=== PATIENT | male | born 1960 | race Two or more races ===

== ENCOUNTER 2019-09-17 13:35 | Inpatient (IN) | payer MEDICAID, OTHER ==
[~2019-09-17] VITALS: Ht 175.3 cm; Wt 98.6 kg
[2019-09-17] MEDS ORDERED: methylPREDNISolone SOD SUCC 125 MG/2 ML VL IV ONE (14:45)
[2019-09-17 17:17] LABS: Alanine Aminotransferase 40 U/L (16-61); Albumin 3.3 g/dL (3.4-5.0); Anion Gap 5 (5-15); Blood Urea Nitrogen 5 mg/dL (7-18); Calcium 8.8 mg/dL (8.5-10.1); Carbon Dioxide 27 mmol/L (21-32); Chloride 106 mmol/L (98-107); Glucose 103 mg/dL (74-106); Potassium 3.9 mmol/L (3.5-5.1); Sodium 138 mmol/L (136-145)
[2019-09-17 17:22] LABS: Alkaline Phosphatase 100 U/L (45-117); Aspartate Aminotransferase 30 U/L (15-37); BUN/Creatinine Ratio 7.9; Bilirubin, Total 0.5 mg/dL (0.2-1.0); GFR African American 167 mL/min; GFR Non-African American 138 mL/min; Total Protein 7.6 g/dL (6.4-8.2)
[2019-09-17 19:10] LABS: Basophils # (auto) 0 10 ^3/uL (0-0.2); Basophils % (auto) 0.2 % (0.0-2.0); Eosinophils # (auto) 0.1 10 ^3/uL (0-0.8); Eosinophils % (auto) 1.1 % (0.0-7.0); Hematocrit 39.8 % (41.0-53.0); Hemoglobin 13.4 g/dL (13.5-17.5); Lymphocytes % (auto) 10.6 % (10.0-50.0); Mean Corpuscular Hemoglobin 30.2 pg (28.0-32.0); Mean Corpuscular Hgb Conc. 33.6 g/dL (32.0-36.0); Mean Corpuscular Volume 89.9 fL (80.0-100.0); Monocytes # (auto) 0.6 10 ^3/uL (0-1.3); Monocytes % (auto) 6.4 % (0.0-12.0); Neutrophils # (auto) 7.4 10 ^3/uL (1.6-8.6); Neutrophils % (auto) 81.7 % (37.0-80.0); Nucleated Red Blood Cells % 0.1 %; Platelet Count (auto) 224 10^3/uL (140-450); Red Blood Cells 4.43 10^6/uL (4.5-5.90); Red Cell Distribution Width 14.8 % (11.8-14.3); White Blood Cell 9.1 10^3/uL (4.4-10.8)
[2019-09-17] MEDS ORDERED: HYDROmorphone HCL 2 MG/ML VL IV PRN (20:45)
[2019-09-17] MEDS ORDERED: ACETAMINOPHEN 325 MG TAB PO PRN (20:45)
[2019-09-17] MEDS ORDERED: DEXTROSE (50%) 50ML SYRG IV PRN (20:45)
[2019-09-17] MEDS ORDERED: MORPHINE SULF INJ 2 MG/ML SYRINGE 1ML IV PRN ×2 (20:45)
[2019-09-17] MEDS ORDERED: NITROGLYCERIN 0.4 MG SL TAB SL PRN (20:45)
[2019-09-17] MEDS ORDERED: levoFLOXacin 750MG 150 ML IV ONE (20:45)
[2019-09-17] MEDS ORDERED: ONDANSETRON HCL 4 MG/2 ML VIAL IV PRN (20:45)
[2019-09-17] MEDS ORDERED: HYDROcodone-ACET 5/325MG TAB PO PRN (20:45)
[2019-09-17] MEDS ORDERED: ALBUTEROL SULF HFA 90MCG INH 200DOSE IN SCH (22:00)
[2019-09-17 22:50] VITALS: BP 118/73
[2019-09-17] MEDS: ENOXAPARIN SOD 40 MG/0.4 ML SYRINGE SC SCH (22:50)
[2019-09-17] MEDS: SODIUM CHLOR 0.9% PF (SALINE LOCK) 10ML VIAL/SYR IV SCH (22:50)
[2019-09-17] MEDS: methylPREDNISolone SOD SUCC 40 MG/ML VL IV SCH (22:50)
[2019-09-17] MEDS: ACCU-CHEK COMFORT CURVE STRIP VI SCH (22:50)
--- NOTE | 2019-09-17 22:50 | NUR ---
Telemetry admit from ER KESHAV BHATTI admitted to Telemetry unit. Patient oriented to primary RN, unit, room, bed, and unit policies regarding patient care and visiting hours. Patient now on continuous telemetry monitoring, tele box #13 and telemetry reading on arrival to unit is NSR. Patient placed on bedside oxygen 2L NC, weighed by bedscale and encouraged to call if they need something. All questions and concerns addressed, patient verbalized understanding. Bed in lowest locked position, call light within reach, side rails up x2. Will continue to monitor Q1hr and PRN.
[2019-09-17] MEDS: InsuLIN REG 1unit/0.01ml Soln (100units/ml) SC SCH (22:55)
[2019-09-18 00:01] LABS: CRP High Sensitivity 2.69 mg/dL (< 0.3)
[2019-09-18 00:04] VITALS: BP 122/75
--- NOTE | 2019-09-18 03:20 | NUR ---
Received pt from [facility]. Report given by CARLOS ENRIQUE Contreras
--- NOTE | 2019-09-18 03:20 | NUR ---
Endorsed care Endorsed patient care to Nuno MONACO. Patient transferred to room 279A by Nuno MONACO via wheelchair. All personal belongings taken with patient.
[2019-09-18] MEDS: SODIUM CHLOR 0.9% PF (SALINE LOCK) 10ML VIAL/SYR IV SCH ×3 (06:37→22:00)
[2019-09-18] MEDS: InsuLIN REG 1unit/0.01ml Soln (100units/ml) SC SCH ×5 (06:38→23:13)
[2019-09-18] MEDS: ACCU-CHEK COMFORT CURVE STRIP VI SCH ×4 (06:38→22:48)
--- NOTE | 2019-09-18 07:30 | NUR ---
Opening Shift Note Assumed patient care from JOSE E MONACO.
[2019-09-18 08:35] LABS: Basophils # (auto) 0.1 10 ^3/uL (0-0.2); Basophils % (auto) 0.4 % (0.0-2.0); Eosinophils # (auto) 0 10 ^3/uL (0-0.8); Eosinophils % (auto) 0.3 % (0.0-7.0); Hemoglobin 13.3 g/dL (13.5-17.5); Lymphocytes # (auto) 0.7 10 ^3/uL (0.4-5.4); Lymphocytes % (auto) 6.2 % (10.0-50.0); Mean Corpuscular Hgb Conc. 33.2 g/dL (32.0-36.0); Mean Corpuscular Volume 90.2 fL (80.0-100.0); Monocytes # (auto) 0.3 10 ^3/uL (0-1.3); Monocytes % (auto) 2.2 % (0.0-12.0); Neutrophils # (auto) 10.9 10 ^3/uL (1.6-8.6); Neutrophils % (auto) 90.9 % (37.0-80.0); Platelet Count (auto) 227 10^3/uL (140-450); Red Blood Cells 4.43 10^6/uL (4.5-5.90); Red Cell Distribution Width 14.7 % (11.8-14.3)
[2019-09-18 08:57] LABS: Albumin 3.1 g/dL (3.4-5.0); BUN/Creatinine Ratio 9.5; Calcium 8.6 mg/dL (8.5-10.1); Magnesium 2.4 mg/dL (1.6-2.6); Potassium 3.9 mmol/L (3.5-5.1)
[2019-09-18 09:09] LABS: Bilirubin, Total 0.5 mg/dL (0.2-1.0); Total Protein 7.2 g/dL (6.4-8.2)
[2019-09-18 09:19] VITALS: BP 112/70
[2019-09-18] MEDS: ENOXAPARIN SOD 40 MG/0.4 ML SYRINGE SC SCH ×2 (09:37→22:48)
[2019-09-18] MEDS: methylPREDNISolone SOD SUCC 40 MG/ML VL IV SCH ×2 (09:37→22:47)
--- NOTE | 2019-09-18 10:00 | NUR ---
Ambulated Patient ambulated arounds station x4.
[2019-09-18 11:30] LABS: Urine WBC None Seen /hpf (0 - 3)
[2019-09-18 11:40] LABS: Urine Bacteria NONE SEEN /hpf (None Seen); Urine Blood Negative /uL (Negative); Urine Mucus FEW (None Seen); Urine Specific Gravity 1.018 (1.001-1.035)
--- NOTE | 2019-09-18 11:56 | NUR ---
at Bedside Dr. Angel at bedside discussing plan of care with patient. Per MD, call Dr. Rodas to obtain clearance for discharge.
[2019-09-18] MEDS ORDERED: FUROSEMIDE 40 MG/4 ML VIAL IV ONE (12:15)
[2019-09-18 13:00] VITALS: BP 131/72
--- NOTE | 2019-09-18 13:12 | NUR ---
Called MD Left message with Dr. Rodas regarding MD request for discharge clearance.
[2019-09-18 16:52] VITALS: BP 126/76
--- NOTE | 2019-09-18 19:40 | NUR ---
Opening Shift Note Patient awake and AOx4 w/ HOB at 30 degrees, locked in lowest position and call light within reach. Discussed POC w/ patient and patient understood w/ verbal agreement. No pain noted at this time. Will continue to monitor.
[2019-09-18 22:38] VITALS: BP 115/69
[2019-09-18] MEDS: levoFLOXacin 250 MG TAB PO SCH (22:46)
[2019-09-19 05:54] VITALS: BP 106/57
[2019-09-19] MEDS: SODIUM CHLOR 0.9% PF (SALINE LOCK) 10ML VIAL/SYR IV SCH ×2 (06:00→14:00)
[2019-09-19] MEDS: ACCU-CHEK COMFORT CURVE STRIP VI SCH ×2 (06:07→11:37)
[2019-09-19] MEDS: InsuLIN REG 1unit/0.01ml Soln (100units/ml) SC SCH ×2 (06:10→11:42)
[2019-09-19 06:42] LABS: Potassium 4.1 mmol/L (3.5-5.1)
[2019-09-19 06:46] LABS: BUN/Creatinine Ratio 14.5; Calcium 8.8 mg/dL (8.5-10.1)
--- NOTE | 2019-09-19 07:30 | NUR ---
Opening Shift Note Assumed patient care from NOC RN. Patient currently sitting up in bed, feet dangling. No signs of distress. Patient denying shortness of breath at this time, respirations are even and unlabored, 2L nasal cannula. Safety precautions in place, will continue to monitor.
--- NOTE | 2019-09-19 08:00 | NUR ---
Ambulated Patient ambulated around station x4. No signs of distress, patient denies shortness of breath at this time.
--- NOTE | 2019-09-19 09:30 | NUR ---
at Bedside Dr. Young at bedside discussing plan of care with patient. MD updated on patient status, per MD patient is clear for discharge, patient to obtain referral if follow up is needed.
[2019-09-19] MEDS: methylPREDNISolone SOD SUCC 40 MG/ML VL IV SCH (09:50)
[2019-09-19] MEDS: ENOXAPARIN SOD 40 MG/0.4 ML SYRINGE SC SCH (09:51)
[2019-09-19] MEDS: levoFLOXacin 250 MG TAB PO SCH (09:51)
[2019-09-19] MEDS ORDERED: FUROSEMIDE 40 MG/4 ML VIAL IV SCH (10:00)
--- NOTE | 2019-09-19 11:19 | NUR ---
at bedside Dr. Angel at bedside discussing plan of care with patient, per MD, patient will be discharged today.
[2019-09-19 12:30] VITALS: BP 120/70
[2019-09-19 14:50] VITALS: BP 120/70
--- NOTE | 2019-09-19 14:59 | NUR ---
assessment Hospital Sales Representative spoke with pt per ss consult for home health. Pt is a 59 yr old male admitted for acute respiratory failure. Pt is on 2 L o2 at home, he was with [facility] for vitals following 3 week admission at [facility] for covfl. Pt was independent with adl's prior to admission. only 02 for dme. pt resides with his spouse and children who are supportive. Pt will dc home with family, no home health needs. Ss to remain available as needed. Addendum: 09/19/19 at 1502 by PHILIP MILLER Amended: Links added.
--- NOTE | 2019-09-19 17:21 | NUR ---
Discharge Discharge instructions given as ordered. Encourage to follow up with PMD as instructed. All questions and concerns addressed. Patient verbalized understanding. Medication reconciliation form completed and copy given to patient. Patient received prescribed medications, delivered to bedside by [facility]. IV removed with catheter intact, pressure dressing applied. Telemetry unit returned to ICU. Patient taken to vehicle via wheelchair with all personal belongings, accompanied by staff. No distress noted at time of departure.
== END 2019-09-19 17:21 | disposition home or self-care (01) | DRG 137 ==
LOC: ER 13:35 → TELE 13:36 → TELE-EAST 22:42 → TELE-WESTW 09-18 03:24
PROVIDERS: ADMIT Internal Medicine; ATTEND Internal Medicine
DX: A48.1 Legionnaires' disease (principal); E11.9 Type 2 diabetes mellitus without complications; E66.9 Obesity, unspecified; J96.01 Acute respiratory failure with hypoxia; J18.9 Pneumonia, unspecified organism; J98.11 Atelectasis; B96.0 Mycoplasma pneumoniae [M. pneumoniae] as the cause of diseases classified elsewhere; Z20.828 Contact with and (suspected) exposure to other viral communicable diseases; Z68.32 Body mass index [BMI] 32.0-32.9, adult
CPT/HCPCS: 36415; 71045; 71046; 80048; 80053; 81001; 82728; 82962; 83036; 83605; 83615; 83735; 83880; 84439; 84443; 84484; 85025; 85379; 85652; 86141; 86738; 87040; 87278; G0378; J1815; J1956

== ENCOUNTER → 2019-10-29 | Outpatient (CLI) | payer MEDICAID ==
[2019-10-29 11:25] LABS: Cholesterol 186 mg/dL (< 200); HDL Cholesterol 48 mg/dL (40-59); LDL Cholesterol 126 mg/dL (< 100); Triglycerides 182 mg/dL (< 150)
== END | disposition home or self-care (01) ==
LOC: LAB 10:03
PROVIDERS: ATTEND Internal Medicine
DX: Z12.5 Encounter for screening for malignant neoplasm of prostate (principal); E11.9 Type 2 diabetes mellitus without complications; M79.89 Other specified soft tissue disorders
CPT/HCPCS: 36415; 80061; 82043; 83036; 84153; 84443; 85379

== ENCOUNTER → 2020-10-18 | Outpatient (CLI) | payer MEDICAID | END | disposition home or self-care (01) | LOC: Rad HDHVI 12:34 | PROVIDERS: ATTEND Internal Medicine Cardiovascular Disease | DX: E78.5 Hyperlipidemia, unspecified (principal); R06.02 Shortness of breath | CPT/HCPCS: 93306 ==

== ENCOUNTER → 2020-10-26 | Outpatient (CLI) | payer MEDICAID ==
[~2020-10-26] VITALS: Ht 175.3 cm; Wt 106.6 kg
[~2020-10-26] MED LIST: ADENOSINE 90 MG in GIVE UN-DILUTED 0 ML IV ONE; ADENOSINE 90 MG/30 ML INJ IV ONE
== END | disposition home or self-care (01) ==
LOC: Rad HDHVI 09:26
PROVIDERS: ATTEND Internal Medicine Cardiovascular Disease
DX: I10 Essential (primary) hypertension (principal); E11.9 Type 2 diabetes mellitus without complications; E78.5 Hyperlipidemia, unspecified; R06.02 Shortness of breath
CPT/HCPCS: 78452; 93005; 96374; 96375; A9500; J0153

== ENCOUNTER → 2021-02-24 | Outpatient (CLI) | payer MEDICAID ==
[2021-02-24 07:35] LABS: Cholesterol 197 mg/dL (< 200); HDL Cholesterol 53 mg/dL (40-59); LDL Cholesterol 118 mg/dL (< 100); Triglycerides 151 mg/dL (< 150)
== END | disposition home or self-care (01) ==
LOC: LAB 06:33
PROVIDERS: ATTEND Internal Medicine
DX: E11.9 Type 2 diabetes mellitus without complications (principal)
CPT/HCPCS: 36415; 80061; 82043; 83036

== ENCOUNTER → 2021-04-26 | Outpatient (CLI) | payer MEDICAID | END | disposition home or self-care (01) | LOC: LAB 08:50 | PROVIDERS: ATTEND Internal Medicine | DX: R05.9 Cough, unspecified (principal) | CPT/HCPCS: 36415; 85379 ==

== ENCOUNTER → 2022-04-10 | Outpatient (CLI) | payer MEDICAID | END | disposition home or self-care (01) | LOC: XYW 09:47 → EDSTATUS 16:17 | PROVIDERS: ATTEND Internal Medicine | DX: R00.2 Palpitations (principal) | CPT/HCPCS: 93306 ==

== ENCOUNTER → 2022-05-05 | Outpatient (CLI) | payer MEDICAID ==
[2022-05-05 11:08] LABS: Basophils # (auto) 0 10 ^3/uL (0-0.2); Basophils % (auto) 0.3 % (0.0-2.0); Eosinophils # (auto) 0.1 10 ^3/uL (0-0.8); Eosinophils % (auto) 1.8 % (0.0-7.0); Hematocrit 43.2 % (41.0-53.0); Hemoglobin 14.9 g/dL (13.5-17.5); Lymphocytes # (auto) 2.4 10 ^3/uL (0.4-5.4); Lymphocytes % (auto) 36.6 % (10.0-50.0); Mean Corpuscular Hemoglobin 30.8 pg (28.0-32.0); Mean Corpuscular Hgb Conc. 34.6 g/dL (32.0-36.0); Mean Corpuscular Volume 89.1 fL (80.0-100.0); Monocytes # (auto) 0.7 10 ^3/uL (0-1.3); Monocytes % (auto) 10.4 % (0.0-12.0); Neutrophils # (auto) 3.4 10 ^3/uL (1.6-8.6); Neutrophils % (auto) 50.9 % (37.0-80.0); Nucleated Red Blood Cells % 0.1 %; Red Blood Cells 4.84 10^6/uL (4.5-5.90); Red Cell Distribution Width 14.1 % (11.8-14.3); White Blood Cell 6.6 10^3/uL (4.4-10.8)
[2022-05-05 11:49] LABS: Albumin 3.7 g/dL (3.4-5.0); BUN/Creatinine Ratio 12.2; Bilirubin, Total 0.6 mg/dL (0.2-1.0); Calcium 8.7 mg/dL (8.5-10.1); Potassium 3.9 mmol/L (3.5-5.1); Total Protein 7.8 g/dL (6.4-8.2)
== END | disposition home or self-care (01) ==
LOC: LAB 10:32
PROVIDERS: ATTEND Internal Medicine
DX: Z00.00 Encounter for general adult medical examination without abnormal findings (principal); Z12.11 Encounter for screening for malignant neoplasm of colon; E11.9 Type 2 diabetes mellitus without complications; E78.5 Hyperlipidemia, unspecified
CPT/HCPCS: 36415; 80053; 80061; 82043; 83036; 85025

== ENCOUNTER → 2022-05-29 | Outpatient (CLI) | payer MEDICAID ==
[2022-05-29 12:57] LABS: Albumin 3.7 g/dL (3.4-5.0); Bilirubin, Direct 0.3 mg/dL (0-0.2); Bilirubin, Total 0.9 mg/dL (0.2-1.0); Total Protein 7.9 g/dL (6.4-8.2)
== END | disposition home or self-care (01) ==
LOC: LAB 10:34
PROVIDERS: ATTEND Internal Medicine
DX: E78.5 Hyperlipidemia, unspecified (principal)
CPT/HCPCS: 36415; 80076

== ENCOUNTER → 2022-06-16 | Outpatient (CLI) | payer MEDICAID ==
[2022-06-16 07:14] LABS: Albumin 3.4 g/dL (3.4-5.0); Calcium 8.5 mg/dL (8.5-10.1); Potassium 3.9 mmol/L (3.5-5.1)
[2022-06-16 07:18] LABS: BUN/Creatinine Ratio 10.5 (10.0-20.0); Bilirubin, Total 0.6 mg/dL (0.2-1.0); Total Protein 7.6 g/dL (6.4-8.2)
== END | disposition home or self-care (01) ==
LOC: LAB 06:27
PROVIDERS: ATTEND Internal Medicine
DX: E11.9 Type 2 diabetes mellitus without complications (principal); E78.5 Hyperlipidemia, unspecified
CPT/HCPCS: 36415; 80053; 80061; 83036

== ENCOUNTER 2022-10-04 10:10 | Emergency (ER) | payer MEDICAID ==
[~2022-10-04] VITALS: Ht 175.3 cm; Wt 104.6 kg
[2022-10-04] MEDS ORDERED: KETOROLAC TROMETH 60MG/2ML VIAL IM ONE (10:45)
[2022-10-04 11:36] LABS: Basophils # (auto) 0 10 ^3/uL (0-0.2); Basophils % (auto) 0.1 % (0.0-2.0); Eosinophils # (auto) 0.2 10 ^3/uL (0-0.8); Eosinophils % (auto) 2.4 % (0.0-7.0); Hematocrit 44.4 % (41.0-53.0); Hemoglobin 14.9 g/dL (13.5-17.5); Lymphocytes # (auto) 2.4 10 ^3/uL (0.4-5.4); Lymphocytes % (auto) 34.1 % (10.0-50.0); Mean Corpuscular Hemoglobin 29.8 pg (28.0-32.0); Mean Corpuscular Hgb Conc. 33.5 g/dL (32.0-36.0); Mean Corpuscular Volume 89.1 fL (80.0-100.0); Monocytes # (auto) 0.8 10 ^3/uL (0-1.3); Neutrophils # (auto) 3.6 10 ^3/uL (1.6-8.6); Neutrophils % (auto) 52.4 % (37.0-80.0); Nucleated Red Blood Cells % 0.2 %; Red Blood Cells 4.99 10^6/uL (4.5-5.90); Red Cell Distribution Width 14.2 % (11.8-14.3); White Blood Cell 6.9 10^3/uL (4.4-10.8)
[2022-10-04 11:37] LABS: Urine Bacteria NONE SEEN /hpf (None Seen); Urine Blood Negative /uL (Negative); Urine Specific Gravity 1.035 (1.001-1.035); Urine WBC <1 /hpf (0 - 3)
[2022-10-04 11:48] LABS: Albumin 3.4 g/dL (3.4-5.0); Calcium 8.3 mg/dL (8.5-10.1); Potassium 3.8 mmol/L (3.5-5.1)
[2022-10-04 11:53] LABS: BUN/Creatinine Ratio 16.2 (10.0-20.0); Bilirubin, Total 0.4 mg/dL (0.2-1.0); Total Protein 7.4 g/dL (6.4-8.2)
[2022-10-04 12:18] VITALS: BP 101/59; PULSE 71; RESP 17; TEMP 98.7; O2SAT 95
== END 2022-10-04 12:20 | disposition home or self-care (01) ==
LOC: ER 10:10
DX: M79.18 Myalgia, other site (principal); E11.9 Type 2 diabetes mellitus without complications; E78.5 Hyperlipidemia, unspecified
CPT/HCPCS: 36415; 74176; 80053; 81001; 85025; 93005; 96372; 99285; J1885

== ENCOUNTER → 2022-10-30 | Outpatient (CLI) | payer MEDICAID ==
[2022-10-30 07:41] LABS: Albumin 3.4 g/dL (3.4-5.0); Bilirubin, Direct 0.2 mg/dL (0-0.2)
[2022-10-30 07:44] LABS: Bilirubin, Total 0.5 mg/dL (0.2-1.0); Total Protein 7.2 g/dL (6.4-8.2)
== END | disposition home or self-care (01) ==
LOC: LAB 06:15
PROVIDERS: ATTEND Internal Medicine
DX: E11.9 Type 2 diabetes mellitus without complications (principal); E78.5 Hyperlipidemia, unspecified
CPT/HCPCS: 36415; 80061; 80076; 83036

== ENCOUNTER → 2022-12-18 | Outpatient (CLI) | payer MEDICAID ==
[2022-12-18 07:18] LABS: Urine Bacteria NONE SEEN /hpf (None Seen); Urine Blood Negative /uL (Negative); Urine Clarity Clear (Clear); Urine Color Yellow (Yellow); Urine Protein, UAD Negative (Negative); Urine Urobilinogen Normal (Negative); Urine WBC 1 /hpf (0 - 3); Urine pH 5.5 (5.0-8.0)
[2022-12-18 08:08] LABS: Erythrocyte Sedimentation Rate 5 mm/hr (0-20)
[2022-12-18 08:15] LABS: Creatinine, Urine 128.59 mg/dL (30.0-125.0)
[2022-12-18 08:17] LABS: Micro Albumin < 3.0 mg/L (<30.0)
[2022-12-18 08:18] LABS: Alanine Aminotransferase 21 U/L (7-40); Albumin 3.9 g/dL (3.2-4.8); Alkaline Phosphatase 121 U/L (46-116); Anion Gap 9 (5-15); Aspartate Aminotransferase 17 U/L (13-40); BUN/Creatinine Ratio 9.6 (10.0-20.0); Bilirubin, Total 0.9 mg/dL (0.2-1.0); Blood Urea Nitrogen 7 mg/dL (9-23); CRP High Sensitivity 0.38 mg/dL (<1.0); Calcium 8.9 mg/dL (8.5-10.1); Carbon Dioxide 25 mmol/L (20-30); Chloride 107 mmol/L (98-107); Glucose 138 mg/dL (74-106); Potassium 3.9 mmol/L (3.5-5.1); Sodium 141 mmol/L (136-145); Total Protein 7.1 g/dL (5.7-8.2)
[2022-12-18 12:27] LABS: Uric Acid 4.4 mg/dL (3.7-9.2)
== END | disposition home or self-care (01) ==
LOC: LAB 06:25
PROVIDERS: ATTEND Internal Medicine
DX: E11.9 Type 2 diabetes mellitus without complications (principal); E78.5 Hyperlipidemia, unspecified; M54.50 Low back pain, unspecified
CPT/HCPCS: 36415; 80053; 81001; 82043; 82570; 84550; 85652; 86141

== ENCOUNTER 2022-12-26 13:00 | Emergency (ER) | payer MEDICAID ==
[~2022-12-26] VITALS: Ht 175.3 cm; Wt 104.0 kg
[2022-12-26 14:43] VITALS: BP 106/72; PULSE 78; RESP 18; TEMP 98.4; O2SAT 95
[2022-12-26] MEDS ORDERED: KETOROLAC TROMETH 60MG/2ML VIAL IM ONE (14:45)
[2022-12-26] MEDS ORDERED: TETANUS-DIPTH-ACEL PERTUSSIS 0.5ML SYR Tdap IM ONE (14:45)
[2022-12-26] MEDS ORDERED: ACE3T PO (16:33)
[2022-12-26] MEDS ORDERED: IBUP-1455 PO (16:33)
[2022-12-26] MEDS ORDERED: CEPH500C PO (16:33)
== END 2022-12-26 16:45 | disposition home or self-care (01) ==
LOC: ER 13:00
DX: M79.644 Pain in right finger(s) (principal); L08.9 Local infection of the skin and subcutaneous tissue, unspecified
CPT/HCPCS: 73130; 90471; 90715; 96372; 99284; J1885

== ENCOUNTER → 2023-01-25 | Outpatient (CLI) | payer MEDICAID ==
[~2023-01-25] MED LIST changes: +ACE3T PO; -ADENOSINE 90 MG in GIVE UN-DILUTED 0 ML IV ONE; -ADENOSINE 90 MG/30 ML INJ IV ONE; +CEPH500C PO; +IBUP-1455 PO
[2023-01-25 07:27] LABS: Triglycerides 161 mg/dL (< 150)
[2023-01-25 07:28] LABS: LDL Cholesterol 85 mg/dL (< 100)
[2023-01-25 07:29] LABS: Cholesterol 154 mg/dL (< 200); HDL Cholesterol 45 mg/dL (40-59)
== END | disposition home or self-care (01) ==
LOC: LAB 06:07
PROVIDERS: ATTEND Internal Medicine
DX: E11.9 Type 2 diabetes mellitus without complications (principal)
CPT/HCPCS: 36415; 80061; 83036

== ENCOUNTER 2023-02-06 14:41 | Emergency (ER) | payer MEDICAID ==
[~2023-02-06] VITALS: Ht 175.3 cm; Wt 107.0 kg
[2023-02-06 15:09] VITALS: BP 124/60; PULSE 67; RESP 18; O2SAT 94
[2023-02-06] MEDS ORDERED: AMOX875T4 PO (18:35)
== END 2023-02-06 18:54 | disposition home or self-care (01) ==
LOC: ER 14:43
DX: T18.9XXA Foreign body of alimentary tract, part unspecified, initial encounter (principal); E11.9 Type 2 diabetes mellitus without complications; E78.5 Hyperlipidemia, unspecified; W44.8XXA Other foreign body entering into or through a natural orifice, initial encounter; Y93.89 Activity, other specified; Y92.89 Other specified places as the place of occurrence of the external cause; Y99.8 Other external cause status

== ENCOUNTER → 2023-09-12 | Outpatient (CLI) | payer OTHER, MEDICAID ==
[~2023-09-12] MED LIST changes: +AMOX875T4 PO
[2023-09-12 06:42] LABS: Urine Bacteria None Seen /hpf (None Seen)
[2023-09-12 07:18] LABS: Urine Blood Negative /uL (Negative); Urine Clarity Clear (Clear); Urine Color Light-Yellow (Yellow); Urine Protein, UAD Negative (Negative); Urine Specific Gravity 1.026 (1.001-1.035); Urine Urobilinogen Normal (Negative); Urine WBC <1 /hpf (0 - 3)
[2023-09-12 07:28] LABS: CRP High Sensitivity 0.18 mg/dL (<1.0)
[2023-09-12 07:59] LABS: Erythrocyte Sedimentation Rate 3 mm/hr (0-20)
== END | disposition home or self-care (01) ==
LOC: LAB 06:30
PROVIDERS: ATTEND Internal Medicine
DX: Z12.5 Encounter for screening for malignant neoplasm of prostate (principal); E11.9 Type 2 diabetes mellitus without complications; E78.5 Hyperlipidemia, unspecified; R10.9 Unspecified abdominal pain; D35.02 Benign neoplasm of left adrenal gland; Z00.00 Encounter for general adult medical examination without abnormal findings
CPT/HCPCS: 36415; 80061; 81001; 82150; 83036; 83690; 84153; 84443; 85652; 86141

== ENCOUNTER → 2024-04-17 | Outpatient (CLI) | payer OTHER, MEDICAID ==
[2024-04-17 08:09] LABS: Basophils # (auto) 0 10 ^3/uL (0-0.2); Basophils % (auto) 0.4 % (0.0-2.0); Eosinophils # (auto) 0.1 10 ^3/uL (0-0.8); Eosinophils % (auto) 2.4 % (0.0-7.0); Hematocrit 47.9 % (41.0-53.0); Hemoglobin 16.2 g/dL (13.5-17.5); Lymphocytes # (auto) 1.8 10 ^3/uL (0.4-5.4); Lymphocytes % (auto) 32.8 % (10.0-50.0); Mean Corpuscular Hemoglobin 30.3 pg (28.0-32.0); Mean Corpuscular Hgb Conc. 33.7 g/dL (32.0-36.0); Mean Corpuscular Volume 89.8 fL (80.0-100.0); Monocytes # (auto) 0.6 10 ^3/uL (0-1.3); Monocytes % (auto) 11.6 % (0.0-12.0); Neutrophils # (auto) 2.9 10 ^3/uL (1.6-8.6); Neutrophils % (auto) 52.8 % (37.0-80.0); Nucleated Red Blood Cells % 0.1 %; Platelet Count (auto) 144 10^3/uL (140-450); Red Blood Cells 5.33 10^6/uL (4.5-5.90); Red Cell Distribution Width 13.7 % (11.8-14.3); White Blood Cell 5.4 10^3/uL (4.4-10.8)
[2024-04-17 08:27] LABS: Creatinine, Urine 154.91 mg/dL (30.0-125.0)
[2024-04-17 08:30] LABS: Microalb/Creat Ratio, Urine < 3.0
[2024-04-17 08:31] LABS: Micro Albumin < 3.0 mg/L (<30.0)
[2024-04-17 08:32] LABS: Alanine Aminotransferase 19 U/L (7-40); Anion Gap 9 (5-15); Calcium 9.6 mg/dL (8.7-10.4); Carbon Dioxide 27 mmol/L (20-31); Chloride 104 mmol/L (98-107); Potassium 4.1 mmol/L (3.5-5.1); Sodium 140 mmol/L (136-145)
[2024-04-17 08:34] LABS: BUN/Creatinine Ratio 9.4 (10.0-20.0)
[2024-04-17 08:36] LABS: Albumin 4.5 g/dL (3.2-4.8); Aspartate Aminotransferase 18 U/L (13-40); Bilirubin, Total 0.7 mg/dL (0.2-1.0); Total Protein 7.4 g/dL (5.7-8.2)
[2024-04-17 08:45] LABS: Alkaline Phosphatase 143 U/L (46-116); Blood Urea Nitrogen 8 mg/dL (9-23); Glucose 159 mg/dL (74-106)
== END | disposition home or self-care (01) ==
LOC: LAB 07:37
PROVIDERS: ATTEND Internal Medicine
DX: E11.9 Type 2 diabetes mellitus without complications (principal)
CPT/HCPCS: 36415; 80053; 82043; 82570; 83036; 85025

== ENCOUNTER 2024-06-25 07:40 | Emergency (ER) | payer OTHER, MEDICAID ==
[~2024-06-25] VITALS: Ht 175.3 cm; Wt 99.5 kg
[2024-06-25 08:14] VITALS: BP 133/79; PULSE 93; RESP 17; TEMP 98.1; O2SAT 95
[2024-06-25] MEDS: KETOROLAC TROMETH 30 MG/ML 1ML VIAL IM ONE (08:31)
[2024-06-25] MEDS: methylPREDNISolone SOD SUCC 125 MG/2 ML VL IM ONE (08:31)
[2024-06-25] MEDS: HYDROcodone-ACET 5/325MG TAB PO ONE (08:31)
--- NOTE | 2024-06-25 08:56 | ED.PDOC ---
Back pain HPI HPI Comments This is a pleasant 63-year-old male with no pertinent MHx that presents with a chief complaint of atraumatic left lower back pain x2 days that radiates down the posterior left lower extremity. Aggravating factors include prolonged ambulation walking and laying on the affected side and patient is able to get temporary relief with [id number] Tylenol Motrin. Denies fevers chills night sweats nausea vomiting unintentional weight loss Denies IV drug use history of HIV/TB Denies abdominal "tearing" pain Denies syncope Denies urinary incontinence or urinary changes Denies numbness tingling of the groin or inner thigh Denies previous back procedure or surgery Chief Complaint: Back Pain Time Seen by MD: 07:55 Primary Care Provider: AMPARO Reviewed Notes: Nurses Notes, Medications, Allergies Allergies: Coded Allergies: NO KNOWN ALLERGIES (Unverified , 09/17/19) Home Meds Active Scripts Amoxicillin & Pot Clavulanate (Amoxicillin/Potassium Cla) 875 Mg Tab, 1 TAB PO BID for 7 Days, #14 TAB 0 Refills Prov:MARTINA MARI 02/06/23 Acetaminophen W/ Codeine (Tylenol W/Cod #3) 1 Tab Tb, 1 TAB PO Q6HP PRN, #15 TAB Prov:CHARLY GALLEGOS PAC 12/26/22 Ibuprofen Micronized (Ibuprofen) 800 Mg Tab, 800 MG PO Q8HP PRN, #30 TAB Prov:CHARLY GALLEGOS PAC 12/26/22 Cephalexin Monohydrate (Cephalexin) 500 Mg Cap, 1 CAP PO QID for 7 Days, #28 CAP Prov:CHARLY GALLEGOS PAC 12/26/22 Information Source: Patient Mode of Arrival: Wheelchair Past Medical History PAST MEDICAL HISTORY: DM, High Lipids Surgical History: Denies all surgeries Family History Family History: Unknown Social History Smoker: Non-Smoker Alcohol: Occasionally Drugs: Denies Drug Use Lives In: Home All Other Systems: Reviewed and Negative (Per HPI) Physical Exam General Appearance: No Apparent Distress, Normal HEENT: Normal ENT Inspection, Pharynx Normal, TMs Normal Neck: Full Range of Motion, Non-Tender, Normal, Normal Inspection Respiratory: Chest Non-Tender, Lungs Clear, No Accessory Muscle Use, No Respiratory Distress, Normal Breath Sounds Cardiovascular: No Edema, No JVD, No Murmur, No Gallop, Normal Peripheral Pulses, Regular Rate/Rhythm Breast Exam: Deferred Gastrointestinal: No Organomegaly, Non Tender, No Pulsatile Mass, Normal Bowel Sounds, Soft Genitalia: Deferred Pelvic: Deferred Rectal: Deferred Extremities: No calf tenderness, Normal capillary refill, Normal inspection, Normal range of motion, Non-tender, No pedal edema Musculoskeletal : Location: Left Extremity Location: Back (No gross abnormality to the back on inspection. No midline tenderness. Full forward flexion-extension and lateral movements. Distal neuro sensation intact. Left straight leg raise test positive) Apperance: Normal Neurologic: Alert, customer experience strategist II-XII nml as Tested, No Motor Deficits, Normal Affect, Normal Mood, No Sensory Deficits Cerebellar Function: Normal Reflexes: Normal Skin: Dry, Normal Color, Warm Lymphatic: No Adenopathy Was a procedure done? Was a procedure done?: No Back Pain Differential Dx Differential Diagnosis: Musculoskeletal Pain X-Ray, Labs, Meds, VS Vital Signs Date Time Temp Pulse Resp B/P (MAP) Pulse Ox O2 Delivery O2 Flow Rate FiO2 06/25/24 08:14 98.1 93 17 133/79 (97) 95 98.1 06/25/24 08:14 93 17 95 Room Air 06/25/24 07:54 98.1 93 17 133/79 (97) 95 98.1 Current Medications Medications (Trade) Dose Ordered Sig/Sina Route Start Time Stop Time Status Last Admin Ketorolac Tromethamine (Toradol Injection) 30 mg ONCE ONCE IM 06/25/24 08:30 06/25/24 08:31 DC 06/25/24 08:31 Acetaminophen/ Hydrocodone Bitart ([place] 5/325MG Tab) 1 tab ONCE ONCE PO 06/25/24 08:30 06/25/24 08:31 DC 06/25/24 08:31 Methylprednisolone Sodium Succinate (Solu Medrol) 125 mg ONCE ONCE IM 06/25/24 08:30 06/25/24 08:31 DC 06/25/24 08:31 X-Ray, Labs, Meds, VS Comment Given patient's history and exam: Sciatica, cord compression, cauda equina, aortic dissection, Guillain-[place] syndrome, epidural hematoma/abscess were all considered. Patient not toxic or ill-appearing. Vital signs within acceptable limits. Positive straight leg raise on exam with tenderness to the buttock consistent with sciatica. No vertebral point tenderness noted over the T or L- spine. No paraspinal muscle tenderness noted. No fever or IV drug use the. The differential for an acute vascular, neurologic, malignant, or infectious etiologies is much less likely given his/her presentation. The patient does not warrant a radiological exam at this time. The patient was given Medication for pain control in the ED. Advised patient to try to take alternating Ibuprofen and Tylenol to help with inflammation of the sciatic nerve and surrounding tissues and should try to do low back stretches but also try to rest and avoid excessive sitting and bending. On reassessment, the patient's symptoms improved, and patient was able to ambulate without assistive devices. The patient will f/u with PMD to see if his/her symptoms soco. An MRI may need to be ordered if the symptoms worsen or do not improve over time. The patient was counseled in regard to the diagnosis and management of the condition and verbalized understanding of this. The patient understands to return to the ER or seek immediate medical attention if the symptoms worsen or return. Time of 1ST Reevaluation: 08:53 Reevaluation 1ST: Improved Patient Education/Counseling: Diagnosis, Treatment Family Education/Counseling: Diagnosis, Treatment Departure 1 Departure Time of Disposition: 08:54 Impression: Primary Impression: Lumbar radiculopathy Disposition: 01 HOME / SELF CARE / HOMELESS Condition: Stable Discharged With: Spouse Critical Care Note Critical Care Time?: No Stability Stability form required: No Heart Score Heart Score: Heart Score Response (Comments) Value History N/A 0 EKG N/A 0 Age N/A 0 Risk Factors N/A 0 Troponin N/A 0 Total 0 GONZALO GARCIA COMPRESSOR STATIONS SUPERINTENDENT Jun 25, 2024 08:56
== END 2024-06-25 09:00 | disposition home or self-care (01) ==
LOC: ER 07:40
DX: M54.16 Radiculopathy, lumbar region (principal); E11.9 Type 2 diabetes mellitus without complications; E78.5 Hyperlipidemia, unspecified; Z79.899 Other long term (current) drug therapy
CPT/HCPCS: 96372; 99284; J1885; J2919

== ENCOUNTER → 2024-07-14 | Outpatient (CLI) | payer OTHER, MEDICAID ==
[2024-07-14 07:45] LABS: Urine Bacteria None Seen /hpf (None Seen)
[2024-07-14 08:25] LABS: Urine Blood Negative /uL (Negative); Urine Clarity Clear (Clear); Urine Color Light-Yellow (Yellow); Urine Protein, UAD Negative (Negative); Urine Specific Gravity 1.041 (1.001-1.035); Urine Squamous Epithelial Cell FEW /hpf (<5); Urine Urobilinogen Normal (Negative); Urine WBC 2 /HPF (0-3); Urine pH 6.5 (5.0-9.0)
[2024-07-14 08:42] LABS: Alanine Aminotransferase 19 U/L (7-40); Albumin 4.4 g/dL (3.2-4.8); Anion Gap 9 (5-15); Aspartate Aminotransferase 15 U/L (13-40); BUN/Creatinine Ratio 16.5 (10.0-20.0); Bilirubin, Total 0.9 mg/dL (0.2-1.0); Blood Urea Nitrogen 13 mg/dL (9-23); Calcium 9.6 mg/dL (8.7-10.4); Carbon Dioxide 27 mmol/L (20-31); Chloride 107 mmol/L (98-107); Potassium 3.9 mmol/L (3.5-5.1); Sodium 143 mmol/L (136-145); Total Protein 7.4 g/dL (5.7-8.2)
[2024-07-14 08:43] LABS: Alkaline Phosphatase 136 U/L (46-116); Glucose 156 mg/dL (74-106)
== END | disposition home or self-care (01) ==
LOC: LAB 07:30
PROVIDERS: ATTEND Internal Medicine
DX: E11.9 Type 2 diabetes mellitus without complications (principal)
CPT/HCPCS: 36415; 80053; 81001; 83036

== ENCOUNTER 2024-09-24 10:29 | Emergency (ER) | payer OTHER, MEDICAID ==
[~2024-09-24] VITALS: Ht 175.3 cm; Wt 96.0 kg
[2024-09-24 10:46] VITALS: TEMP 98.8
[2024-09-24 10:58] VITALS: BP 121/79; PULSE 77; RESP 18; O2SAT 98
--- NOTE | 2024-09-24 10:59 | ED.PDOC ---
General HPI Comments 64 y/o M, with PMHx of DM and HLD presents to the ED for CC of penile pain. Patient states, he has been experiencing pain to the tip of his penis x20 days. Patient reports, that he is uncircumcised and when pulling back his foreskin the tip of his penis is sore, dry, and cracked. Patient relays, previous symptoms in the past [id number] ago and being prescribed Acyclovir; endorses not finishing Rx. Also tried clotrimazole w/ out improvement. Patient denies painful urination, fever, nausea, or penile discharge. No other symptoms or modifying factors present at this time. Chief Complaint: Penile Problem Time Seen by MD: 10:47 Primary Care Provider: AMPARO Reviewed notes: Nurses Notes, Medications, Allergies Allergies: Coded Allergies: NO KNOWN ALLERGIES (Unverified , 09/17/19) Home Meds Active Scripts Hydrocortisone Base (Hydrocortisone) 2.5 % Oin, 1 APPLIC TOP BID for 7 Days, #30 GRAMS 0 Refills Prov:GONZALO GARCIA REAL PROPERTY APPRAISER 09/24/24 Amoxicillin & Pot Clavulanate (Amoxicillin/Potassium Cla) 875 Mg Tab, 1 TAB PO BID for 7 Days, #14 TAB 0 Refills Prov:MARTINA MARI 02/06/23 Acetaminophen W/ Codeine (Tylenol W/Cod #3) 1 Tab Tb, 1 TAB PO Q6HP PRN, #15 TAB Prov:CHARLY GALLEGOS PAC 12/26/22 Ibuprofen Micronized (Ibuprofen) 800 Mg Tab, 800 MG PO Q8HP PRN, #30 TAB Prov:CHARLY GALLEGOS PAC 12/26/22 Cephalexin Monohydrate (Cephalexin) 500 Mg Cap, 1 CAP PO QID for 7 Days, #28 CAP Prov:CHARLY GALLEGOS PAC 12/26/22 Information Source: Patient Mode of Arrival: Ambulatory Severity: Moderate Inability to void: None Timing: Days Duration: Since onset Prehospital treatment: None Onset: Following sexual contact Symptoms: Other (penile pain) Location: None Penile discharge: None Modifying factors: None associated signs and symptoms: Other (penile pain) Past Medical History PAST MEDICAL HISTORY: DM, High Lipids Surgical History: Denies all surgeries Family History Family History: Unknown Social History Smoker: Non-Smoker Alcohol: Occasionally Drugs: Denies Drug Use Lives In: Home Constitutional: denies: chills, diaphoresis, fatigue, fever, malaise, sweats, weakness, others EENTM: denies: blurred vision, double vision, ear bleeding, ear discharge, ear drainage, ear pain, ear ringing, eye pain, eye redness, hearing loss, mouth pain, mouth swelling, nasal discharge, nose bleeding, nose congestion, nose pain, photophobia, tearing, throat pain, throat swelling, voice changes, others Respiratory: denies: cough, hemoptysis, orthopnea, SOB at rest, shortness of breath, SOB with excertion, stridor, wheezing, others Cardiovascular: denies: chest pain, dizzy spells, diaphoresis, Dyspnea on exertion, edema, irregular heart beat, left arm pain, lightheadedness, palpitations, PND, syncope, others Gastrointestinal: denies: abdomen distended, abdominal pain, blood streaked bowels, constipated, diarrhea, dysphagia, difficulty swallowing, hematemesis, melena, nausea, poor appetite, poor fluid intake, rectal bleeding, rectal pain, vomiting, others Genitourinary: reports: others (penile pain); denies: burning, dysuria, flank pain, frequency, hematuria, incontinence, penile discharge, penile sore, pain, testicle pain, testicle swelling, urgency Neurological: denies: dizziness, fainting, headache, left sided numbness, left sided weakness, numbness, paresthesia, pre-existing deficit, right sided numbnes s, right sided weakness, seizure, speech problems, tingling, tremors, weakness, others Musculoskeletal: denies: back pain, gout, joint pain, joint swelling, muscle pain, muscle stiffness, neck pain, others Integumetry: denies: bruises, change in color, change in hair/nails, dryness, laceration, lesions, lumps, rash, wounds, others Allergic/Immunocompromised: denies: Difficulty Healing, Frequent Infections, Hives, Itching, others Hematologic/Lymphatic: denies: anemia, blood clots, easy bleeding, easy bruising, swollen glands, others Endocrine: denies: excessive hunger, excessive sweating, excessive thirst, excessive urination, flushing, intolerance to cold, intolerance to heat, unexplained weight gain, unexplained weight loss, others Psychiatric: denies: anxiety, bipolar disorder, depression, hopeless, panic disorder, schizophrenia, sleepless, suicidal, others All Other Systems: Reviewed and Negative Physical Exam General Appearance: No Apparent Distress, Normal HEENT: Normal ENT Inspection, Pharynx Normal Neck: Full Range of Motion, Non-Tender, Normal, Normal Inspection Respiratory: Chest Non-Tender, Lungs Clear, No Accessory Muscle Use, No Respiratory Distress, Normal Breath Sounds Cardiovascular: No Murmur, No Gallop, Regular Rate/Rhythm Breast Exam: Deferred Gastrointestinal: No Organomegaly, Non Tender, No Pulsatile Mass, Normal Bowel Sounds, Soft Genitalia: Penis (shaft mildly erythematosus), Deferred Pelvic: Deferred Rectal: Deferred Extremities: No calf tenderness, Normal capillary refill, Normal inspection, Normal range of motion, Non-tender, No pedal edema Musculoskeletal : Apperance: Normal Neurologic: Alert, billing customer service representative II-XII nml as Tested, No Motor Deficits, Normal Affect, Normal Mood, No Sensory Deficits Cerebellar Function: Normal Reflexes: Normal Skin: Dry, Normal Color, Warm Lymphatic: No Adenopathy Was a procedure done? Was a procedure done?: No Differential Diagnosis Kidney stone (Female): N/A Kidney stone (Male): N/A Penile/Scrotal: Epidiymitis, Prostatitis, STD, Other (STI) Urinary Problem (Male): N/A Urinary Problem (Female): N/A X-Ray, Labs, Meds, VS Vital Signs Date Time Temp Pulse Resp B/P (MAP) Pulse Ox O2 Delivery O2 Flow Rate FiO2 09/24/24 10:58 77 18 98 Room Air 09/24/24 10:58 76 18 121/79 (93) 94 09/24/24 10:46 98.8 79 16 103/65 (78) 94 98.8 Lab Test 09/24/24 10:53 Range/Units Urine Color Light-yellow Yellow Urine Clarity Clear Clear Urine pH 6.0 5.0-9.0 Urine Specific [place] 1.043 H 1.001-1.035 Urine Protein Negative Negative Urine Ketones Negative Negative Urine Blood Negative Negative /uL Urine Nitrite Negative Negative Urine Bilirubin Negative Negative Urine Urobilinogen Normal Negative mg/dL Urine Leukocyte Esterase Negative Negative /uL Urine RBC 15 0 - 3 /hpf Urine Microscopic WBC 1 0-3 /HPF Urine Squamous Epithelial Cells Few <5 /hpf Urine Bacteria None seen None Seen /hpf Urine Hyaline Casts Few 0 - 2 /lpf Urine Mucus Few None Seen Urine Glucose 4+ H Normal mg/dL Chlamydia trachomatis (MELVIN) Pending Neisseria gonorrhoeae (MELVIN) Pending X-Ray, Labs, Meds, VS Comment 64 y/o M, with PMHx of DM and HLD presents to the ED for CC of penile pain. Patient arrives alert and oriented, ABC's intact, afebrile, vital signs stable, saturating well in room air Urinalysis was ordered to rule out UTI or hematuria. Medical Decision Making: DIFFERENTIAL DIAGNOSIS: Symptoms consistent with balanoposthitis. Physiologic phimosis noted on exam but no evidence of obstructive uropathy. Pain well controlled and patient well hydrated Recommended sitz baths twice daily with bacitracin ointment three times a day to shaft and glans. Stressed importance of pulling foreskin back to normal position afterwards. If no improvement over the next week, then follow up with primary doctor. Return precautions discussed such as those associated with obstructive uropathy. IMPRESSION: Balanoposthitis PLAN: Discharge home in stable condition with continued outpatient evaluation with Primary Care Provider in 1 week if no improvement. Patient is stable for discharge at this time. External notes reviewed. Test results and diagnostic imaging interpreted. All diagnostic findings, discharge care, education and instructions provided Follow-up with PCP in 2 to 3 days Patient verbalized understanding and agreed to treatment plan Vital signs stable, afebrile, no acute distress noted Patient ambulatory with strong steady gait Advised to return precautions for any new or worsening symptoms, return to ER immediately for re-evaluation Patient is aware that the purpose of this visit was for an acute medical wendy gency requiring emergent stabilization. Chronic conditions, including malignancies have not been ruled out. Patient is instructed to follow up with PCP as directed and discharge instructions for continued care and workup. If unable to arrange follow-up, patient is to return to the emergency department for reassessment. Patient (parent or legal guardian if applicable) was given v erbal and written discharge instructions and acknowledges understanding. Additional MDM Review of External, Non-ED records: External records reviewed. Discussion with independent historian (EMS, family) history obtained from the patient/parents (if applicable) at bedside Chronic conditions affecting care: None Social determinants of health affecting care: None Consideration of admission (observation or admission): I considered escalation of care to admission for this patient, however given the reassuring workup, the patient is safe for outpatient management. Discussion with the Radiology: No Tests considered but not performed: Prescription medication considered but not given: 12 lead EKG interpretation: Time of 1ST Reevaluation: 11:13 Reevaluation 1ST: Unchanged Time of 2ND Reevaluation: 13:00 Reevaluation 2ND: Improved Patient Education/Counseling: Diagnosis, Treatment Family Education/Counseling: No Family Present SEPSIS Sepsis Screen Physician Orders Chlamydia/Gc Amplification (09/24/24 10:46) Vital Signs Date Time Temp Pulse Resp B/P (MAP) Pulse Ox O2 Delivery O2 Flow Rate FiO2 09/24/24 10:58 77 18 98 Room Air 09/24/24 10:58 76 18 121/79 (93) 94 09/24/24 10:46 98.8 79 16 103/65 (78) 94 98.8 Departure 1 Departure Time of Disposition: 13:18 Impression: Primary Impression: Balanoposthitis Disposition: 01 HOME / SELF CARE / HOMELESS Condition: Stable e-Prescriptions Hydrocortisone Base (Hydrocortisone) 2.5 % Oin 1 APPLIC TOP BID for 7 Days, #30 GRAMS 0 Refills Prov: GONZALO GARCIA NP 09/24/24 Discharged With: Self Critical Care Note Critical Care Time?: No Stability Stability form required: No Heart Score Heart Score: Heart Score Response (Comments) Value History N/A 0 EKG N/A 0 Age N/A 0 Risk Factors N/A 0 Troponin N/A 0 Total 0 I personally scribed for GONZALO GARCIA NP ([email or web address]) on 09/24/24 at 10:59. Electronically submitted by Gloria Neri ([email or web address]). I personally scribed for GONZALO GARCIA NP ([email or web address]) on 09/24/24 at 13:05. Electronically submitted by Gloria Neri ([email or web address]). GONZALO GARCIA NP Sep 24, 2024 10:59
[2024-09-24 12:20] LABS: Urine Protein, UAD Negative (Negative)
[2024-09-24] MEDS ORDERED: HYDR2.5O TOP (13:06)
[2024-09-25 14:07] LABS: Chlamydia Trachomatis, NAA Negative (Negative); Neisseria gonorrhoeae, NAA Negative (Negative)
== END 2024-09-24 13:18 | disposition home or self-care (01) ==
LOC: ER 10:29
DX: N47.6 Balanoposthitis (principal); E11.9 Type 2 diabetes mellitus without complications; E78.5 Hyperlipidemia, unspecified
CPT/HCPCS: 81001

== ENCOUNTER 2024-10-14 09:52 | Outpatient (CLI) | payer OTHER, MEDICAID ==
[~2024-10-14 09:52] MED LIST changes: +HYDR2.5O TOP
== END 2024-10-14 17:00 | disposition home or self-care (01) ==
LOC: LAB 09:52
PROVIDERS: ATTEND Internal Medicine
DX: E11.9 Type 2 diabetes mellitus without complications (principal)
CPT/HCPCS: 36415; 83036

== ENCOUNTER 2025-02-04 14:28 | Emergency (ER) | payer OTHER, MEDICAID ==
[~2025-02-04] VITALS: Ht 175.3 cm; Wt 95.0 kg
[2025-02-04 14:30] VITALS: TEMP 97.9; O2SAT 96
[2025-02-04 15:22] LABS: Hematocrit 45.7 % (41.0-53.0); Hemoglobin 15.7 g/dL (13.5-17.5); Mean Corpuscular Hemoglobin 30.5 pg (28.0-32.0); Mean Corpuscular Volume 88.8 fL (80.0-100.0); Nucleated Red Blood Cells % 0.2 %
--- NOTE | 2025-02-04 15:26 | ED.PDOC ---
General HPI Comments A 64 YEAR OLD MALE PRESENTS TO THE ED WITH COMPLAINT OF LEFT SIDED TESTICLE PAIN. PT STATES HE HAS BEEN HAVING LEFT-SIDED ABDOMINAL PAIN THAT RADIATES TO HIS LEFT TESTICLE FOR THE PAST 5X DAYS. PT STATES THE PAIN IS BURNING IN NATURE, WITH NOTED INCREASED PAIN WITH AMBULATION AND NO RELIEVING FACTORS. PATIENT NOTES HE HAS A HISTORY OF HAVING THREE TESTICLES, AND NOTES THIS WAS DISCOVERED 6 MONTHS AGO. PATIENT DENIES DYSURIA, HEMATURIA, FLANK PAIN, FEVER, CHILLS, SHORTNESS OF BREATH, CHEST PAIN, NAUSEA, VOMITING, HEADACHE, OR OTHER COMPLAINTS. NO OTHER SYMPTOMS OR MODIFYING FACTORS AT THIS TIME. PATIENT IS ALERT, ORIENTED X 4, AND HAS STEADY GAIT. Chief Complaint: Testicle Pain Time Seen by MD: 15:20 Primary Care Provider: UNKNOWN Reviewed notes: Nurses Notes, Medications, Allergies Allergies: Coded Allergies: NO KNOWN ALLERGIES (Unverified , 09/17/19) Home Meds Active Scripts Tramadol HCl (Tramadol HCl) 50 Mg Tab, 50 MG PO BID, #20 TAB Prov:HEMANT GALICIA 02/04/25 Hydrocortisone Base (Hydrocortisone) 2.5 % Oin, 1 APPLIC TOP BID for 7 Days, #30 GRAMS 0 Refills Prov:GONZALO GARCIA NP 09/24/24 Amoxicillin & Pot Clavulanate (Amoxicillin/Potassium Cla) 875 Mg Tab, 1 TAB PO BID for 7 Days, #14 TAB 0 Refills Prov:MARTINA MARI 02/06/23 Acetaminophen W/ Codeine (Tylenol W/Cod #3) 1 Tab Tb, 1 TAB PO Q6HP PRN, #15 TAB Prov:CHARLY GALLEGOS PAC 12/26/22 Ibuprofen Micronized (Ibuprofen) 800 Mg Tab, 800 MG PO Q8HP PRN, #30 TAB Prov:CHARLY GALLEGOS 12/26/22 Cephalexin Monohydrate (Cephalexin) 500 Mg Cap, 1 CAP PO QID for 7 Days, #28 CAP Prov:CHARLY GALLEGOS PAC 12/26/22 Information Source: Patient Mode of Arrival: Ambulatory Brought in by: SELF Severity: Moderate Inability to void: None Timing: Days Duration: Since onset, Days Prehospital treatment: None Onset: Spontaneous Symptoms: Other (LEFT LOWER ABDOMINAL PAIN THAT RADIATES TO LEFT TESTICLE) History of: None Location: None Location male: L Scrotum Penile discharge: None Modifying factors: None associated signs and symptoms: Abdominal Pain Past Medical History PAST MEDICAL HISTORY: DM, High Lipids Surgical History: Denies all surgeries Family History Family History: Reviewed,noncontributory to illness Social History Smoker: Non-Smoker Alcohol: Occasionally Drugs: Denies Drug Use Lives In: Home Constitutional: denies: chills, diaphoresis, fatigue, fever, malaise, sweats, weakness, others EENTM: denies: blurred vision, double vision, ear bleeding, ear discharge, ear drainage, ear pain, ear ringing, eye pain, eye redness, hearing loss, mouth pain, mouth swelling, nasal discharge, nose bleeding, nose congestion, nose pain, photophobia, tearing, throat pain, throat swelling, voice changes, others Respiratory: denies: cough, hemoptysis, orthopnea, SOB at rest, shortness of breath, SOB with excertion, stridor, wheezing, others Cardiovascular: denies: chest pain, dizzy spells, diaphoresis, Dyspnea on exertion, edema, irregular heart beat, left arm pain, lightheadedness, palpitations, PND, syncope, others Gastrointestinal: reports: abdominal pain; denies: abdomen distended, blood streaked bowels, constipated, diarrhea, dysphagia, difficulty swallowing, hematemesis, melena, nausea, poor appetite, poor fluid intake, rectal bleeding, rectal pain, vomiting, others Genitourinary: reports: testicle pain; denies: burning, dysuria, flank pain, frequency, hematuria, incontinence, penile discharge, penile sore, pain, testicle swelling, urgency, others Neurological: denies: dizziness, fainting, headache, left sided numbness, left sided weakness, numbness, paresthesia, pre-existing deficit, right sided numbness, right sided weakness, seizure, speech problems, tingling, tremors, weakness, others Musculoskeletal: denies: back pain, gout, joint pain, joint swelling, muscle pain, muscle stiffness, neck pain, others Integumetry: denies: bruises, change in color, change in hair/nails, dryness, laceration, lesions, lumps, rash, wounds, others Allergic/Immunocompromised: denies: Difficulty Healing, Frequent Infections, Hives, Itching, others Hematologic/Lymphatic: denies: anemia, blood clots, easy bleeding, easy bruising, swollen glands, others Endocrine: denies: excessive hunger, excessive sweating, excessive thirst, excessive urination, flushing, intolerance to cold, intolerance to heat, unexplained weight gain, unexplained weight loss, others Psychiatric: denies: anxiety, bipolar disorder, depression, hopeless, panic disorder, schizophrenia, sleepless, suicidal, others All Other Systems: Reviewed and Negative Physical Exam General Appearance: Mild Distress, Obese HEENT: Normal ENT Inspection, PERRL/EOMI, Pharynx Normal, TMs Normal Neck: Full Range of Motion, Non-Tender, Normal, Normal Inspection Respiratory: Chest Non-Tender, Lungs Clear, No Accessory Muscle Use, No Respiratory Distress, Normal Breath Sounds Cardiovascular: No Edema, No JVD, No Murmur, No Gallop, Normal Peripheral Pulses, Regular Rate/Rhythm Breast Exam: Deferred Gastrointestinal: LLQ, No Organomegaly, No Pulsatile Mass, Normal Bowel Sounds, Soft, Tenderness (TENDERNESS LEFT LOWER ABD TO LEFT TESTICLE, NO GUARDING AND REBOUND TENDERNESS. ) Genitalia: Testicle (TENDERNESS ON LEFT TESTICLE NOTED, ADDITIONAL THIRD TESTICLE NOTED ABOVE LEFT TESTICLE, ALL DESCENDING.) Pelvic: Deferred Rectal: Deferred Extremities: No calf tenderness, Normal capillary refill, Normal inspection, Normal range of motion, Non-tender, No pedal edema Musculoskeletal : Apperance: Normal Neurologic: Alert, columnist/commentator II-XII nml as Tested, No Motor Deficits, Normal Affect, Normal Mood, No Sensory Deficits Cerebellar Function: Normal Reflexes: Normal Skin: Dry, Normal Color, Warm Peripheral Pulses: 2+ carotid (R), 2+ carotid (L) Lymphatic: No Adenopathy Was a procedure done? Was a procedure done?: No Differential Diagnosis Kidney stone (Female): N/A Kidney stone (Male): Strain, Urolithiasis, Urinary tract infection Penile/Scrotal: Epidiymitis, Testicular Torsion, N/A Urinary Problem (Male): Epididymitis, Urethritis, Urolithiasis, UTI Urinary Problem (Female): N/A X-Ray, Labs, Meds, VS Vital Signs Date Time Temp Pulse Resp B/P (MAP) Pulse Ox O2 Delivery O2 Flow Rate FiO2 02/04/25 17:08 62 18 02/04/25 17:08 62 115/72 (86) 02/04/25 14:30 97.9 73 16 109/75 96 97.9 Lab Test 02/04/25 15:29 02/04/25 15:09 Range/Units Urine Color Light-yellow Yellow Urine Clarity Clear Clear Urine pH 6.0 5.0-9.0 Urine Specific [place] 1.041 H 1.001-1.035 Urine Protein Negative Negative Urine Ketones Trace Negative Urine Blood Negative Negative /uL Urine Nitrite Negative Negative Urine Bilirubin Negative Negative Urine Urobilinogen Normal Negative mg/dL Urine Leukocyte Esterase Negative Negative /uL Urine RBC <1 0 - 3 /hpf Urine Microscopic WBC < 1 0-3 /HPF Urine Squamous Epithelial Cells Few <5 /hpf Urine Bacteria None seen None Seen /hpf Urine Glucose 4+ H Normal mg/dL White Blood Count 7.6 4.4-10.8 10^3/uL Red Blood Count 5.15 4.5-5.90 10^6/uL Hemoglobin 15.7 13.5-17.5 g/dL Hematocrit 45.7 41.0-53.0 % Mean Corpuscular Volume 88.8 80.0-100.0 fL Mean Corpuscular Hemoglobin 30.5 28.0-32.0 pg Mean Corpuscular Hemoglobin Concent 34.3 32.0-36.0 g/dL Red Cell Distribution Width 13.8 11.8-14.3 % Platelet Count 165 140-450 10^3/uL Mean Platelet Volume 8.4 6.9-10.8 fL Neutrophils (%) (Auto) 57.9 37.0-80.0 % Lymphocytes (%) (Auto) 27.1 10.0-50.0 % Monocytes (%) (Auto) 11.7 0.0-12.0 % Eosinophils (%) (Auto) 2.9 0.0-7.0 % Basophils (%) (Auto) 0.4 0.0-2.0 % Neutrophils # (Auto) 4.4 1.6-8.6 10 ^3/uL Lymphocytes # (Auto) 2.1 0.4-5.4 10 ^3/uL Monocytes # (Auto) 0.9 0-1.3 10 ^3/uL Eosinophils # (Auto) 0.2 0-0.8 10 ^3/uL Basophils # (Auto) 0 0-0.2 10 ^3/uL Nucleated Red Blood Cells 0.2 % Sodium Level 142 136-145 mmol/L Potassium Level 3.9 3.5-5.1 mmol/L Chloride Level 105 98-107 mmol/L Carbon Dioxide Level 28 20-31 mmol/L Anion Gap 9 5-15 Blood Urea Nitrogen 11 9-23 mg/dL Creatinine 1.11 0.700-1.30 mg/dL Glomerular Filtration Rate Calc 73 >90 mL/min BUN/Creatinine Ratio 9.9 L 10.0-20.0 Serum Glucose 141 H 74-106 mg/dL Calcium Level 9.8 8.7-10.4 mg/dL Current Medications Medications (Trade) Dose Ordered Sig/Sina Route Start Time Stop Time Status Last Admin Ketorolac Tromethamine (Toradol Injection) 60 mg ONCE ONCE IM 02/04/25 16:30 02/04/25 16:32 DC 02/04/25 16:43 Acetaminophen/ Hydrocodone Bitart ([place] 5/325MG Tab) 1 tab ONCE ONCE PO 02/04/25 16:30 02/04/25 16:32 DC 02/04/25 16:43 [place] [id number] Ph: [phone] DIAGNOSTIC IMAGING Diagnostic Imaging Report : [id number] Signed PATIENT: KESHAV BHATTI ACCT: [id number] UNIT: [id number] : 1960 LOC: ER ROOM / BED: / AGE / SEX: 64 / M ADM STATUS: REG ER SERVICE 145 ORDERING PHYSICIAN: HEMANT GALICIA PROCEDURE(s): TESUS - TESTICULAR ULTRASOUND REASON: LEFT TESTICLE PAIN ORDER NUMBER(s): [id number], ACCESSION NUMBER(s): [id number] CLINICAL HISTORY: LEFT TESTICLE PAIN TECHNIQUE: High resolution scrotal ultrasound was performed with a linear transducer with duplex doppler and customer support representative images acquired. COMPARISON: None FINDINGS: The right testis measures 4.5 x 3.8 x 2.8 cm. There is no intratesticular mass or calcification. The left testis measures 4.4 x 2.4 x 2.8 cm. There is no intratesticular mass or calcification. There are normal spectral Doppler and vascular waveforms. The bilateral epididymides appear unremarkable. Just superior to the main left testicle, there is a 2.4 x 1.5 x 1.9 cm structure with echotexture similar to the left testicle. No vascular flow is seen within this structure. There is slight increased echogenicity within the structure measuring 1 cm. IMPRESSION: 2.4 cm structure just superior to the main left testicle with echotexture similar to the left testicle. 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 This structure demonstrates no flow and therefore there is concern for torsion. 1 cm area of slight increased echogenicity within the extra left testicle, of uncertain significance. FINDINGS AND INTERPRETATION DISCUSSED WITH DR GALICIA AT DATE AND TIME 02/04/2025 07:03 PM ATED BY: VALDEZ BALDERAS MD DICTATED DATE/TIME: 02/04/251606 SIGNED BY: VALDEZ BALDERAS MD SIGNED DATE/TIME: 02/04/251606 CC: [place] [address] Ph: [phone] DIAGNOSTIC IMAGING Diagnostic Imaging Report : [id number] Signed PATIENT: KESHAV BHATTI ACCT: [id number] UNIT: [id number] : 1960 LOC: ER ROOM / BED: / AGE / SEX: 64 / M ADM STATUS: REG ER SERVICE 1459 ORDERING PHYSICIAN: HEMANT GALICIA PROCEDURE(s): ABPL - CT AB PEL WO CON-NO ORAL OR IV REASON: left lower abd pain to left testicle ORDER NUMBER(s): [id number], ACCESSION NUMBER(s): [id number] CLINICAL HISTORY: left lower abd pain to left testicle TECHNIQUE: CT of the abdomen and pelvis was performed without IV contrast. This exam was performed according to our departmental dose optimization program. Up-to-date CT equipment and radiation dose reduction techniques are utilized as appropriate. CTDI 16 DLP 1116 COMPARISON: CT CT AB PEL WO CON-NO ORAL OR IV on DOS: 10/04/22, ECIDC on DOS: 04/10/22 FINDINGS: Abdomen/Pelvis: The spleen, pancreas, right adrenal gland, gallbladder, kidneys, bladder, and prostate gland are grossly unremarkable. There is a 2.7 cm left adrenal myelolipoma. The left hepatic lobe is atrophic. The abdominal aorta is normal in course and caliber. There are no significant atherosclerotic calcifications. There is no free intraperitoneal air or fluid. There is no enlarged abdominal pelvic lymph node. There is no bowel wall thickening or dilatation. The appendix is normal. There is a moderate amount of stool in the colon. Other: The imaged lower thorax demonstrates bilateral lower lung scarring with mild traction bronchiectasis. No acute osseous abnormality is evident. Impression: No acute noncontrast CT abnormality in the abdomen/pelvis. 2.7 cm left adrenal myelolipoma. Constipation. ATED BY: VALDEZ BALDERAS MD DICTATED DATE/TIME: 02/04/251551 SIGNED BY: VALDEZ BALDERAS MD SIGNED DATE/TIME: 02/04/251551 CC: X-Ray, Labs, Meds, VS Comment EXTERNAL MEDICAL RECORDS REVIEWED: [NONE] INDEPENDENT HISTORIANS: [NONE] SOCIAL DETERMINANTS OF HEALTH: [NONE] LABS ORDERED: CBC, BMP, UA REVIEWED AND INTERPRETED RESULTS: NORMAL IMAGING ORDERED: US GEN/SCROTUM, CT ABD/PEL TREATMENTS ORDERED: TORADOL 60 MG IM, [place] 5/325MG PO. PATIENT NOTED HE NO LONGER HAS PAIN AT THIS TIME. PROCEDURES PERFORMED: NONE CRITICAL CARE TIME: NONE 1620: THE ON-CALL RADIOLOGIST CALLED ME AND INFORMED ME OF THE ULTRASOUND RESULTS SHOWING A POSSIBLE TORSION OF HIS LEFT THIRD TESTICLE. 1630: I HAVE CONSULTED THE ON-CALL UROLOGIST RJ HARTLEY REGARDING THIS PATIENT'S CASE AND ULTRASOUND RESULTS AND SHE HAS SAID SHE WILL REVIEW THE PATIENT'S IMAGING RESULTS AND CALL BACK SHORTLY. 1640: RJ HARTLEY HAS CALLED BACK AND HAS SAID THERE IS NO TORSION NOTED ON HIS ULTRASOUND AND THAT IT IS THAT HIS THIRD LEFT TESTICLE IS NOT FUNCTIONING/. SHE HAS SAID THE PATIENT IS OKAY TO BE DISCHARGED HOME AND DOES NOT NEED TO BE ADMITTED AND CAN BE PRESCRIBED PAIN MEDICINE AND FOLLOW UP WITH HIS OFFICE NEXT WEEK. PATIENT WAS PROVIDED THE PHONE NUMBER FOR THE OFFICE. BASED ON HISTORY OF PRESENT ILLNESS, AND PHYSICAL EXAM, PATIENT WILL BE DISCHARGED HOME. DISCUSSED PLAN FOR DISCHARGE HOME WITH RX [ULTRAM]. MEDICATION WARNINGS GIVEN. SHARED DECISION MAKING: PATIENT INSTRUCTED TO FOLLOW UP WITH PRIMARY CARE PROVIDER IN 1-2 DAYS FOR RE-EVALUATION OF SYMPTOMS. PATIENT VERBALIZES UNDERSTANDING TO RETURN TO ED FOR NEW OR WORSENING SYMPTOMS OR IF FOLLOW UP WITH PCP CANNOT BE OBTAINED. PATIENT FEELS COMFORTABLE GOING HOME AT THIS TIME. ALL QUESTIONS ADDRESSED AT TIME OF DISCHARGE. Images Reviewed?: Images reviewed and evaluated by me Time of 1ST Reevaluation: 15:50 Reevaluation 1ST: Unchanged Time of 2ND Reevaluation: 17:00 Reevaluation 2ND: Improved Consultation: Other (UROLOGIST: 1640: RJ HARTLEY HAS CALLED BACK AND HAS SAID THERE IS NO TORSIO NOTED ON HIS ULTRASOUND AND THAT IT IS THAT ON OF HIS THREE TESTICLE IS NOT FUNCTIONING/. SHE HAS SAID THE PATIENT IS OKAY TO BE DISCHARGED HOME AND DOES NOT NEED TO BE ADMITTED AND CAN BE PRESCRIBED PAIN MEDICINE AND FOLLOW UP WITH HIS OFFICE NEXT WEEK.) Patient Education/Counseling: Diagnosis, Treatment, Need For Follow Up Family Education/Counseling: Diagnosis, Treatment, Need For Follow Up Medical Screening: No EMC Exist At This Time SEPSIS Sepsis Screen Date sepsis recognized/suspect: Feb 04, 2025 Time Sepsis recognized/suspect: 1432 Recent Procedure: No On Antibiotic Therapy: No Respiratory Rate >20: No Heart Rate >90: No Temp<36 C (96.8 F) or >38.3 C: No SBP <90 or MAP <65 mmHG: No New Acute Mental Status Change: No Is the patient on CPAP, BIPAP,: No Physician Orders Ct Ab Pel Wo Con-No Oral Or Iv (02/04/25 14:59) Testicular Ultrasound (02/04/25 14:59) Heplock Iv (02/04/25 ) Vital Signs Date Time Temp Pulse Resp B/P (MAP) Pulse Ox O2 Delivery O2 Flow Rate FiO2 02/04/25 17:08 62 18 02/04/25 17:08 62 115/72 (86) 02/04/25 14:30 97.9 73 16 109/75 96 97.9 Laboratory Tests Test 02/04/25 15:09 White Blood Count 7.6 10^3/uL (4.4-10.8) Departure 1 Departure Time of Disposition: 17:04 Impression: Primary Impression: Testicular dysfunction Additional Impression: Adrenal myelolipoma Disposition: 01 HOME / SELF CARE / HOMELESS Condition: Stable Additional Instructions: FOLLOW-UP WITH UROLOGIST NEXT WEEK. TAKE MEDICATIONS PRESCRIBED. RETURN TO ED FOR ANY NEW OR WORSENING SYMPTOMS. e-Prescriptions Tramadol HCl (Tramadol HCl) 50 Mg Tab 50 MG PO BID, #20 TAB Prov: HEMANT GALICIA 02/04/25 Discharged With: Self, Spouse Critical Care Note Critical Care Time?: No Stability Stability form required: No Heart Score Heart Score: Heart Score Response (Comments) Value History N/A 0 EKG N/A 0 Age N/A 0 Risk Factors N/A 0 Troponin N/A 0 Total 0 I personally scribed for HEMANT GALICIA ([email or web address]) on 02/04/25 at 15:25. Electronically submitted by Lilian Manriquez ([email or web address]). I personally scribed for HEMANT GALICIA ([email or web address]) on 02/04/25 at 16:16. Electronically submitted by Lilian Manriquez ([email or web address]). I personally scribed for HEMANT GALICIA ([email or web address]) on 02/04/25 at 16:23. Electronically submitted by Lilian Manriquez ([email or web address]). I personally scribed for HEMANT GALICIA ([email or web address]) on 02/04/25 at 16:33. Electronically submitted by Lilian Manriquez ([email or web address]). I personally scribed for HEMANT GALICIA ([email or web address]) on 02/05/25 at 07:23. Electronically submitted by Bentley Meyers ([email or web address]). HEMANT GALICIA Feb 04, 2025 15:25
[2025-02-04 15:30] LABS: Chloride 105 mmol/L (98-107); Potassium 3.9 mmol/L (3.5-5.1); Sodium 142 mmol/L (136-145)
[2025-02-04 15:31] LABS: Anion Gap 9 (5-15); Calcium 9.8 mg/dL (8.7-10.4); Carbon Dioxide 28 mmol/L (20-31)
[2025-02-04 15:36] LABS: BUN/Creatinine Ratio 9.9 (10.0-20.0); Blood Urea Nitrogen 11 mg/dL (9-23)
[2025-02-04 15:40] LABS: Glucose 141 mg/dL (74-106)
[2025-02-04 15:42] LABS: Urine Protein, UAD Negative (Negative)
--- NOTE | 2025-02-04 15:55 | DVH ---
CLINICAL HISTORY: left lower abd pain to left testicle TECHNIQUE: CT of the abdomen and pelvis was performed without IV contrast. This exam was performed according to our departmental dose optimization program. Up-to-date CT equipment and radiation dose reduction techniques are utilized as appropriate. CTDI 16 DLP 1116 COMPARISON: CT CT AB PEL WO CON-NO ORAL OR IV on DOS: 10/04/22, ECIDC on DOS: 04/10/22 FINDINGS: Abdomen/Pelvis: The spleen, pancreas, right adrenal gland, gallbladder, kidneys, bladder, and prostate gland are grossly unremarkable. There is a 2.7 cm left adrenal myelolipoma. The left hepatic lobe is atrophic. The abdominal aorta is normal in course and caliber. There are no significant atherosclerotic calcifications. There is no free intraperitoneal air or fluid. There is no enlarged abdominal pelvic lymph node. There is no bowel wall thickening or dilatation. The appendix is normal. There is a moderate amount of stool in the colon. Other: The imaged lower thorax demonstrates bilateral lower lung scarring with mild traction bronchiectasis. No acute osseous abnormality is evident. Impression: No acute noncontrast CT abnormality in the abdomen/pelvis. 2.7 cm left adrenal myelolipoma. Constipation.
--- NOTE | 2025-02-04 16:09 | DVH ---
CLINICAL HISTORY: LEFT TESTICLE PAIN TECHNIQUE: High resolution scrotal ultrasound was performed with a linear transducer with duplex doppler and sales and service representative images acquired. COMPARISON: None FINDINGS: The right testis measures 4.5 x 3.8 x 2.8 cm. There is no intratesticular mass or calcification. The left testis measures 4.4 x 2.4 x 2.8 cm. There is no intratesticular mass or calcification. There are normal spectral Doppler and vascular waveforms. The bilateral epididymides appear unremarkable. Just superior to the main left testicle, there is a 2.4 x 1.5 x 1.9 cm structure with echotexture similar to the left testicle. No vascular flow is seen within this structure. There is slight increased echogenicity within the structure measuring 1 cm. IMPRESSION: 2.4 cm structure just superior to the main left testicle with echotexture similar to the left testicle. 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 This structure demonstrates no flow and therefore there is concern for torsion. 1 cm area of slight increased echogenicity within the extra left testicle, of uncertain significance. FINDINGS AND INTERPRETATION DISCUSSED WITH DR GALICIA AT DATE AND TIME 02/04/2025 07:03 PM
[2025-02-04] MEDS ORDERED: MORPHINE SULFATE 4 MG/ML SYR/VIAL IV ONE (16:30)
[2025-02-04] MEDS ORDERED: ONDANSETRON HCL 4 MG/2 ML VIAL IV ONE (16:30)
[2025-02-04] MEDS: HYDROcodone-ACET 5/325MG TAB PO ONE (16:43)
[2025-02-04] MEDS: KETOROLAC TROMETH 60MG/2ML VIAL IM ONE (16:43)
[2025-02-04] MEDS ORDERED: TRAM-626 PO (16:53)
[2025-02-04 17:08] VITALS: BP 115/72; PULSE 62; RESP 18
== END 2025-02-04 17:09 | disposition home or self-care (01) ==
LOC: ER 14:28
DX: D17.79 Benign lipomatous neoplasm of other sites (principal); E29.9 Testicular dysfunction, unspecified; E11.9 Type 2 diabetes mellitus without complications; E78.5 Hyperlipidemia, unspecified; F10.90 Alcohol use, unspecified, uncomplicated; Z79.899 Other long term (current) drug therapy
CPT/HCPCS: 36415; 74176; 76870; 80048; 81001; 85025; 96372; 99285; J1885

== ENCOUNTER 2025-02-09 07:37 | Outpatient (CLI) | payer OTHER, MEDICAID ==
[~2025-02-09 07:37] MED LIST changes: +TRAM-626 PO
[2025-02-09 07:59] LABS: Hematocrit 48.0 % (41.0-53.0); Hemoglobin 16.2 g/dL (13.5-17.5); Mean Corpuscular Hemoglobin 30.1 pg (28.0-32.0); Mean Corpuscular Volume 89.2 fL (80.0-100.0); Nucleated Red Blood Cells % 0.1 %
[2025-02-09 08:03] LABS: Urine Protein, UAD Negative (Negative)
[2025-02-09 08:18] LABS: Anion Gap 10 (5-15); Carbon Dioxide 30 mmol/L (20-31); Chloride 102 mmol/L (98-107); Potassium 4.4 mmol/L (3.5-5.1); Sodium 142 mmol/L (136-145)
[2025-02-09 08:19] LABS: Calcium 9.7 mg/dL (8.7-10.4)
[2025-02-09 08:24] LABS: BUN/Creatinine Ratio 10.9 (10.0-20.0); Blood Urea Nitrogen 10 mg/dL (9-23)
[2025-02-09 08:34] LABS: Glucose 167 mg/dL (74-106)
[2025-02-09 08:49] LABS: Microalb/Creat Ratio, Urine < 5.00
== END 2025-02-09 17:00 | disposition home or self-care (01) ==
LOC: LAB 07:37
PROVIDERS: ATTEND Internal Medicine
DX: E11.9 Type 2 diabetes mellitus without complications (principal)
CPT/HCPCS: 36415; 80048; 81001; 82043; 82570; 83036; 84443; 85025

== ENCOUNTER 2025-02-17 13:10 | Inpatient (IN) | payer MEDICARE, MEDICAID ==
[~2025-02-17] VITALS: Ht 175.3 cm; Wt 95.1 kg
[2025-02-17 14:35] VITALS: BP 102/64; PULSE 59; RESP 16; TEMP 98.1; O2SAT 97
[2025-02-17] MEDS ORDERED: ONDANSETRON HCL 4 MG/2 ML VIAL IV PRN (15:15)
[2025-02-17] MEDS ORDERED: ACETAMINOPHEN 325 MG TAB PO PRN (15:15)
[2025-02-17] MEDS ORDERED: DAPA1TAB4 PO (15:21)
[2025-02-17] MEDS ORDERED: INSUINJ37 SC (15:21)
[2025-02-17] MEDS ORDERED: ATOR10TA52 PO (15:21)
[2025-02-17 15:23] VITALS: O2SAT 98
[2025-02-17] MEDS ORDERED: DEXTROSE (50%) 50ML SYRG IV PRN (15:30)
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
[2025-02-17] MEDS: SODIUM CHLORIDE 0.9% 1,000 ML IV ONE (16:00)
[2025-02-17 16:14] LABS: Hematocrit 43.0 % (41.0-53.0); Hemoglobin 14.9 g/dL (13.5-17.5); Mean Corpuscular Hemoglobin 30.5 pg (28.0-32.0); Mean Corpuscular Volume 87.9 fL (80.0-100.0); Nucleated Red Blood Cells % 0.1 %
[2025-02-17 16:22] LABS: Chloride 100 mmol/L (98-107); Potassium 4.0 mmol/L (3.5-5.1); Sodium 138 mmol/L (136-145)
[2025-02-17 16:23] LABS: Anion Gap 10 (5-15); Carbon Dioxide 28 mmol/L (20-31)
[2025-02-17 16:24] LABS: Calcium 8.8 mg/dL (8.7-10.4)
[2025-02-17 16:29] LABS: BUN/Creatinine Ratio 12.9 (10.0-20.0); Blood Urea Nitrogen 13 mg/dL (9-23)
[2025-02-17 16:31] LABS: Glucose 248 mg/dL (74-106)
[2025-02-17 17:00] VITALS: BP 108/67; PULSE 56; RESP 16; TEMP 98; O2SAT 97
[2025-02-17] MEDS: InsuLIN REG 1unit/0.01ml Soln (100units/ml) SC SCH ×2 (17:00→21:27)
[2025-02-17] MEDS: ACCU-CHEK COMFORT CURVE STRIP VI SCH (17:12)
--- NOTE | 2025-02-17 17:35 | DVH ---
ULTRASOUND OF SCROTUM AND CONTENTS. INDICATION: pain, swelling COMPARISON: US TESTICULAR ULTRASOUND on DOS: 02/04/25 TECHNIQUE: Multiple real-time grayscale sonographic and color and duplex Doppler images of the scrotum and its contents were obtained. FINDINGS: RIGHT TESTICLE: Measures 4.8 X 2.7 X 3.4 CM. Right testicular volume is 22.67 mL Right hydrocele LEFT TESTICLE: Measures 4.3 X 2.8 X 3 cm. Left testicular volume is 18.38 ML LEFT Hydrocele Both testicles demonstrate homogeneous echotexture without evidence of focal lesions. 2.5 cm. Solid nodule in the left epididymis. Etiology uncertain. This may represent a supernumerary testicle. Subsequent color and duplex Doppler interrogation of the testes demonstrated symmetric normal vascular flow to both testicles. No focal areas of hyperemia were seen. IMPRESSION: 1. No evidence of torsion, epididymitis, and/or orchitis. 2. Right testicle measures 4.8 cm. Left testicle measures 4.3 cm. 3. Bilateral hydroceles 4. 2.5 cm solid nodule in the epididymis on the left. Etiology uncertain. This may represent a supernumerary testicle.
[2025-02-17 20:00] VITALS: RESP 18; O2SAT 95
[2025-02-17 21:00] VITALS: BP 114/68; PULSE 55; RESP 17; TEMP 97.7; O2SAT 95
[2025-02-17] MEDS: DOCUSATE SOD 100 MG CAP PO SCH (21:32)
[2025-02-18] VITALS (8 sets, daily range): BP systolic 119–125; BP diastolic 73–88; PULSE 54–63; RESP 16–18; TEMP 97.1–98.2; O2SAT 93–97
--- NOTE | 2025-02-18 05:23 | DVH ---
CHEST RADIOGRAPH INDICATION: Pain TECHNIQUE: Single frontal view of the chest was obtained COMPARISON: XR CHEST 2 VIEW on DOS: 01/05/25 FINDINGS: Lines and Tubes: None Lungs: Bilateral interstitial prominence. No focal consolidation. Pleura: No effusion. No pneumothorax. Cardiomediastinal contours: Unremarkable Bones: No acute osseous abnormality. IMPRESSION: 1. Bilateral interstitial prominence suggesting pulmonary congestion.
[2025-02-18 05:52] LABS: Hematocrit 46.1 % (41.0-53.0); Hemoglobin 15.8 g/dL (13.5-17.5); Mean Corpuscular Hemoglobin 30.1 pg (28.0-32.0); Mean Corpuscular Volume 87.9 fL (80.0-100.0); Nucleated Red Blood Cells % 0.1 %
[2025-02-18 06:13] LABS: Alanine Aminotransferase 16 U/L (7-40); Albumin 4.0 g/dL (3.2-4.8); Anion Gap 9 (5-15); BUN/Creatinine Ratio 10.7 (10.0-20.0); Bilirubin, Total 0.7 mg/dL (0.2-1.0); Calcium 8.9 mg/dL (8.7-10.4); Carbon Dioxide 26 mmol/L (20-31); Chloride 106 mmol/L (98-107); Potassium 4.1 mmol/L (3.5-5.1); Sodium 141 mmol/L (136-145); Total Protein 7.0 g/dL (5.7-8.2)
[2025-02-18 06:26] LABS: Alkaline Phosphatase 165 U/L (46-116); Blood Urea Nitrogen 8 mg/dL (9-23); Glucose 201 mg/dL (74-106)
[2025-02-18] MEDS: FLORASTOR (S. BOULARDII) 250 MG CAP PO SCH (09:13)
[2025-02-18] MEDS: HYDROcodone-ACET 5/325MG TAB PO PRN (12:25)
--- NOTE | 2025-02-18 14:44 | DVHPN2 ---
Reviewed: Care Plan Changes from previous H/P or p: No Changes Eyes: No Pain, No Vision change, No Conjunctivae inflammation, No Eyelid inflammation, No Other, No Redness ENT: No Ear pain, No Ear discharge, No Nose pain, No Nose discharge, No Nose congestion, No Mouth pain, No Mouth swelling, No Throat pain, No Throat swelling, No Other Cardiovascular: No Chest Pain, No Palpitations, No Orthopnea, No Paroxysmal Noc. Dyspnea, No Edema, No Lt Headedness, No Other Respiratory: No Cough, No Dry, No Shortness of breath, No SOB with excertion, No Wheezing, No Hemoptysis, No Pleuritic Pain, No Sputum, No Other Gastrointestinal: No Nausea, No Vomiting; Abdominal Pain (right groin down to testicle); No Diarrhea; Constipation; No Melena, No Hematochezia, No Other Genitourinary: No Dysuria, No Frequency, No Incontinence, No Hematuria, No Retention, No Other Musculoskeletal: No other, No neck pain, No shoulder pain, No arm pain; back pain (right flank); No hand pain, No leg pain, No foot pain Skin: No Rash, No Lesions, No Jaundice, No Bruising, No Other Objective Vitals Vital Signs Date Time Temp Pulse Resp B/P (MAP) Pulse Ox O2 Delivery O2 Flow Rate FiO2 02/18/25 13:00 97.8 56 17 119/78 (92) 96 97.8 02/18/25 08:00 Room Air* 0 21 Intake/Output Intake and Output 02/18/25 07:00 Intake Total 600 ml Output Total 1900 ml Balance -1300 ml Intake Oral 600 ml Output Urine Total 1900 ml Medications Current Medications Medications Dose Ordered Sig/Sina Route Start Time Stop Time Status Last Admin Dose Admin Acetaminophen/ Hydrocodone Bitart 1 tab Q4HP PRN PO 02/17/25 15:15 02/18/25 12:25 1 TAB Ondansetron HCl 4 mg Q4HP PRN IV 02/17/25 15:15 Docusate Sodium 100 mg BID PO 02/17/25 22:00 02/18/25 09:12 100 MG Acetaminophen 650 mg Q6HP PRN PO 02/17/25 15:15 Diagnostic Test (Pha) 1 strip ACHS 02/17/25 17:00 02/18/25 11:30 1 STRIP Insulin Human Regular HS SC 02/17/25 22:00 02/17/25 21:27 4 UNITS Insulin Human Regular AC SC 02/17/25 17:00 02/18/25 05:39 3 UNITS Dextrose 50 ml UD PRN IV 02/17/25 15:30 Saccharomyces Boulardii 250 mg DAILY PO 02/18/25 10:00 02/18/25 09:13 250 MG Laboratory Results Laboratory Tests 02/18/25 05:29 Chemistry Test 02/17/25 16:00 02/18/25 05:29 Calcium Level 8.8 mg/dL (8.7-10.4) 8.9 mg/dL (8.7-10.4) Albumin 4.0 g/dL (3.2-4.8) Total Protein 7.0 g/dL (5.7-8.2) LFT Test 02/18/25 05:29 Alanine Aminotransferase (ALT) 16 U/L (7-40) Alkaline Phosphatase 165 U/L (46-116) H Aspartate Amino Transferase (AST) 16 U/L (13-40) Total Bilirubin 0.7 mg/dL (0.2-1.0) Labs and/or images reviewed: Labs reviewed by me, Image(s) reviewed by me Assessment/Plan Assessment/Plan Testicular pain testicular ultrasound negative for any torsion 2.5 cm left epididymal nodule: Consult for Urology Dr. Johnson Possible testicular torsion ruled out, Hyperlipidemia, Diabetes, Time spent 45 minutes Plan discussed with: Patient My Orders Orders - ANNALEE GARCÍA MD Procedure Category Date Status Time * Urology Consult CONS 02/18/25 Transmitted 14:36 Date of Service: Feb 18, 2025 Billing Provider: ANNALEE GARCÍA MD Common Visit Codes: [id number] INP/OBS CARE(HIGH) ANNALEE GARCÍA MD Feb 18, 2025 14:43
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
[2025-02-19 04:52] VITALS: BP 119/80; PULSE 66; RESP 18; TEMP 98.7; O2SAT 95
[2025-02-19 08:00] VITALS: PULSE 55; RESP 17; O2SAT 97
[2025-02-19 09:11] VITALS: BP 121/86; PULSE 56; RESP 16; TEMP 97.7; O2SAT 94
--- NOTE | 2025-02-19 11:05 | DVHPN2 ---
Reviewed: Care Plan Changes from previous H/P or p: No Changes Eyes: No Pain, No Vision change, No Conjunctivae inflammation, No Eyelid inflammation, No Other, No Redness ENT: No Ear pain, No Ear discharge, No Nose pain, No Nose discharge, No Nose congestion, No Mouth pain, No Mouth swelling, No Throat pain, No Throat swelling, No Other Cardiovascular: No Chest Pain, No Palpitations, No Orthopnea, No Paroxysmal Noc. Dyspnea, No Edema, No Lt Headedness, No Other Respiratory: No Cough, No Dry, No Shortness of breath, No SOB with excertion, No Wheezing, No Hemoptysis, No Pleuritic Pain, No Sputum, No Other Gastrointestinal: No Nausea, No Vomiting; Abdominal Pain (right groin down to testicle); No Diarrhea; Constipation; No Melena, No Hematochezia, No Other Genitourinary: No Dysuria, No Frequency, No Incontinence, No Hematuria, No Retention, No Other Musculoskeletal: No other, No neck pain, No shoulder pain, No arm pain; back pain (right flank); No hand pain, No leg pain, No foot pain Skin: No Rash, No Lesions, No Jaundice, No Bruising, No Other Objective Vitals Vital Signs Date Time Temp Pulse Resp B/P (MAP) Pulse Ox O2 Delivery O2 Flow Rate FiO2 02/19/25 09:11 97.7 56 16 121/86 (98) 94 97.7 02/18/25 20:00 Room Air* 0 21 Intake/Output Intake and Output 02/19/25 07:00 Intake Total 1600 ml Balance 1600 ml Intake Oral 1600 ml # Voids 5 Medications Current Medications Medications Dose Ordered Sig/Sina Route Start Time Stop Time Status Last Admin Dose Admin Acetaminophen/ Hydrocodone Bitart 1 tab Q4HP PRN PO 02/17/25 15:15 02/18/25 12:25 1 TAB Ondansetron HCl 4 mg Q4HP PRN IV 02/17/25 15:15 Docusate Sodium 100 mg BID PO 02/17/25 22:00 02/19/25 10:19 100 MG Acetaminophen 650 mg Q6HP PRN PO 02/17/25 15:15 Diagnostic Test (Pha) 1 strip ACHS 02/17/25 17:00 02/19/25 06:34 1 STRIP Insulin Human Regular HS SC 02/17/25 22:00 02/18/25 21:45 8 UNITS Insulin Human Regular AC SC 02/17/25 17:00 02/19/25 06:36 3 UNITS Dextrose 50 ml UD PRN IV 02/17/25 15:30 Saccharomyces Boulardii 250 mg DAILY PO 02/18/25 10:00 02/19/25 10:19 250 MG Laboratory Results Laboratory Tests 02/18/25 05:29 Labs and/or images reviewed: Labs reviewed by me, Image(s) reviewed by me Assessment/Plan Assessment/Plan Testicular pain testicular ultrasound negative for any torsion 2.5 cm left epididymal nodule: Consult for Urology Dr. Montanez , advised outpatient follow up for excision of the epididymal mass Possible testicular torsion ruled out Hyperlipidemia, Diabetes, Time spent 45 minutes Discussed discharge plan with the patient with the help of plant operator/shift supervisor CARLOS ENRIQUE Sun. Plan discussed with: Patient, Other (RN) My Orders Orders - ANNALEE GARCÍA MD Procedure Category Date Status Time * Urology Consult CONS 02/18/25 Transmitted 14:36 Date of Service: Feb 19, 2025 Billing Provider: ANNALEE GARCÍA MD Common Visit Codes: [id number] INP/OBS CARE(HIGH) ANNALEE GARCÍA MD Feb 19, 2025 11:05
[2025-02-19] MEDS ORDERED: TRAM-626 PO (11:08)
[2025-02-19] MEDS ORDERED: DOXY100C79 PO (11:08)
--- NOTE | 2025-02-19 11:14 | DVHDS2 ---
Discharge Summary Date of Admission Feb 17, 2025 at 14:18 Date of Discharge: Feb 19, 2025 Admitting Diagnosis Testicular pain Wounds: None Labs/Diagnostic Data: Laboratory Results Test 02/19/25 06:20 02/18/25 05:29 POC Glucose 207 mg/dl (70-106) White Blood Count 6.6 10^3/uL (4.4-10.8) Red Blood Count 5.25 10^6/uL (4.5-5.90) Hemoglobin 15.8 g/dL (13.5-17.5) Hematocrit 46.1 % (41.0-53.0) Mean Corpuscular Volume 87.9 fL (80.0-100.0) Mean Corpuscular Hemoglobin 30.1 pg (28.0-32.0) Mean Corpuscular Hemoglobin Concent 34.2 g/dL (32.0-36.0) Red Cell Distribution Width 13.8 % (11.8-14.3) Platelet Count 151 10^3/uL (140-450) Mean Platelet Volume 8.5 fL (6.9-10.8) Neutrophils (%) (Auto) 63.8 % (37.0-80.0) Lymphocytes (%) (Auto) 24.4 % (10.0-50.0) Monocytes (%) (Auto) 9.4 % (0.0-12.0) Eosinophils (%) (Auto) 2.2 % (0.0-7.0) Basophils (%) (Auto) 0.2 % (0.0-2.0) Neutrophils # (Auto) 4.2 10 ^3/uL (1.6-8.6) Lymphocytes # (Auto) 1.6 10 ^3/uL (0.4-5.4) Monocytes # (Auto) 0.6 10 ^3/uL (0-1.3) Eosinophils # (Auto) 0.1 10 ^3/uL (0-0.8) Basophils # (Auto) 0 10 ^3/uL (0-0.2) Nucleated Red Blood Cells 0.1 % Sodium Level 141 mmol/L (136-145) Potassium Level 4.1 mmol/L (3.5-5.1) Chloride Level 106 mmol/L (98-107) Carbon Dioxide Level 26 mmol/L (20-31) Anion Gap 9 (5-15) Blood Urea Nitrogen 8 mg/dL (9-23) Creatinine 0.75 mg/dL (0.700-1.30) Glomerular Filtration Rate Calc 100 mL/min (>90) BUN/Creatinine Ratio 10.7 (10.0-20.0) Serum Glucose 201 mg/dL (74-106) Calcium Level 8.9 mg/dL (8.7-10.4) Total Bilirubin 0.7 mg/dL (0.2-1.0) Aspartate Amino Transferase (AST) 16 U/L (13-40) Alanine Aminotransferase (ALT) 16 U/L (7-40) Alkaline Phosphatase 165 U/L (46-116) Total Protein 7.0 g/dL (5.7-8.2) Albumin 4.0 g/dL (3.2-4.8) Other Laboratory Tests 02/18/25 05:29 Brief Hx & Hospital Course: 64-year-old male with a history of diabetes hypercholesterolemia came in complaining of pain over the left side of the scrotum he was sent over by the primary Dr to ruled out testicular torsion. Scrotal ultrasound done and testicular torsion was ruled out patient has a 2.5 cm epididymal nodule on the left side. Urology consult by who advised outpatient follow up for surgery the patient was informed with the help of able bodied watchman and discharged. He will follow up with the Urology for surgery in two weeks. Prescription for doxycycline tramadol transmitted to pharmacy. Consults/Reason for consult Urology Dr. Montanez Operations or Procedures Scrotal ultrasound Condition at Discharge: Fair Final Diagnosis/Problems List Testicular pain testicular ultrasound negative for any torsion 2.5 cm left epididymal nodule: Consult for Urology Dr. Montanez , advised outpatient follow up for excision of the epididymal mass Possible testicular torsion ruled out Hyperlipidemia, Diabetes, Discharge Disposition: Home Discharge Instruct/Medications Diet: Regular Activity: Light activity Follow Up/Referral: Follow up with the Urology Dr. Montanez in two weeks for surgery of the left epididymal mass Medications: Doxycycline 100 mg p.o. b.i.d. 14. Tramadol 40 mg p.o. q.i.d. p.r.n. number 30 Transmitted to pharmacy Scheduled Amoxicillin & Pot Clavulanate (Amoxicillin/Potassium Cla), 1 TAB PO BID Atorvastatin Calcium (Atorvastatin Calcium), 1 TAB PO DAILY, (Reported) Cephalexin Monohydrate (Cephalexin), 1 CAP PO QID Dapagliflozin Propanediol (Farxiga), 1 TAB PO DAILY, (Reported) Hydrocortisone Base (Hydrocortisone), 1 APPLIC TOP BID Insulin Glargine (Lantus Solostar), 15 UNITS SC DAILY, (Reported) Tramadol HCl (Tramadol HCl), 50 MG PO BID Scheduled PRN Acetaminophen W/ Codeine (Tylenol W/Cod #3), 1 TAB PO Q6HP PRN Doxycycline (Monohydrate) (Doxycycline), 100 MG PO BID PRN Ibuprofen Micronized (Ibuprofen), 800 MG PO Q8HP PRN Tramadol HCl (Tramadol HCl), 50 MG PO QID PRN 39 (Time taken for discharge summary 39 minutes) Discharge Statement: "Patient was advised to return to the ER or call 911 if any headaches, dizziness, shortness of breath, chest pain, abdominal pain, bleeding, fevers, or worsening of medical condition. Patient was counseled about treatment plan, medications, possible side effects, patientverbalized understanding. All questions were answered to the best of my ability. This discharge took greater then 30 minutes in planning, reviewing documentation, counseling the patient, and discussing with other team members." ASSESSMENT ASSESSMENT Hospital Course Improved Assessment Testicular pain testicular ultrasound negative for any torsion 2.5 cm left epididymal nodule: Consult for Urology Dr. Montanez , advised outpatient follow up for excision of the epididymal mass Possible testicular torsion ruled out Hyperlipidemia, Diabetes, Date of Service: Feb 19, 2025 Billing Provider: ANNALEE GARCÍA MD Common Visit Codes: [id number] INP/OBS CARE(HIGH) ANNALEE GARCÍA MD Feb 19, 2025 11:14
[2025-02-19 13:00] VITALS: BP 129/83; PULSE 52; RESP 16; TEMP 98.6; O2SAT 96
== END 2025-02-19 13:45 | disposition home or self-care (01) | DRG 730 ==
LOC: EAST 14:18
PROVIDERS: ADMIT Family Medicine; ATTEND Family Medicine
DX: N43.3 Hydrocele, unspecified (principal); E11.9 Type 2 diabetes mellitus without complications; N45.1 Epididymitis; E29.9 Testicular dysfunction, unspecified; E78.5 Hyperlipidemia, unspecified; Z82.3 Family history of stroke; Z79.899 Other long term (current) drug therapy
CPT/HCPCS: 36415; 71045; 76870; 80048; 80053; 82962; 85025; G0378; J1815